=== PATIENT | male | born 1945 | race African-American/Black ===

== ENCOUNTER 2018-08-25 19:22 | Inpatient (IN) | payer MEDICARE, OTHER ==
[~2018-08-25] VITALS: Ht 182.9 cm; Wt 87.3 kg
[2018-08-25 08:30] VITALS: BP 121/76
[~2018-08-25 19:22] MED LIST: ANUSOL-HC25 MG RECTAL; CYCLOBENZAPRINE10 MG ORAL; DIOVAN HCT 1601 EAC1 PO; FIORICET1 EA ORAL; HARVONI 90-4001 EACH PO; IBUPROFEN600 MG ORAL; NORVIR100 MG PO; REYATAZ150 MG PO; SINEMET 25/1001 EA ORAL; TRUVADA1 TAB PO; UNKNOWN HTN MED; ZANTAC150 MG ORAL
--- NOTE | 2018-08-25 20:30 | NUR ---
NURSE NOTES: patient is direct admit from [facility], brought in by ambulance service accompanied by 2 EMT via rhailey. Family members present at the scene. Patient is admitted here for TIA. Alert, verbally responsive, able to make needs known. denies any pain at this time. Respiration even, no SOB no respiratory distress is noted with room air. IV site to left forearm 20g is intact. bed is in lowest position, call light within reach. will continue to monitor
--- NOTE | 2018-08-25 20:45 | NUR ---
NURSE NOTES: Tele monitoring applied to patient, condom path applied. Admission orders verified with Dr. Lujan. patient is NPO at this time untill seen and evaluated by ST. admission instruction, smoking cessation provided to patient and his family members. Will continue to monitor.
[2018-08-25] MEDS ORDERED: Acetaminophen 650 MG SUPP RECTAL PRN (21:45)
[2018-08-25] MEDS ORDERED: NORCO 5-325 TA1 EACH ORAL (22:01)
[2018-08-25] MEDS ORDERED: ALBUTEROL SULF8.5 GM INH (22:01)
[2018-08-25] MEDS ORDERED: VITAMIN D250000 UNI1 ORAL (22:01)
[2018-08-25] MEDS ORDERED: ASPIR 8181 MG ORAL (22:01)
[2018-08-25] MEDS ORDERED: ATORVASTATIN CA10 MG ORAL (22:01)
[2018-08-25] MEDS ORDERED: LISINOPRIL-HCT1 EACH ORAL (22:01)
[2018-08-25] MEDS ORDERED: MECLIZINE HCL25 M1 ORAL (22:01)
[2018-08-25] MEDS ORDERED: METOPROLOL TAR100 M1 ORAL (22:01)
[2018-08-25] MEDS ORDERED: LEFLUNOMIDE20 MG PO (22:01)
[2018-08-25] MEDS ORDERED: GENVOYA TABLET1 EACH PO (22:02)
[2018-08-25] MEDS ORDERED: Vitamin D 50,000 units cap ORAL SCH (22:15)
[2018-08-25] MEDS ORDERED: Meclizine 25mg tab ORAL PRN (22:15)
[2018-08-25] MEDS ORDERED: Albuterol 90mcg Inhaler 8gm INH PRN (22:15)
[2018-08-25] MEDS ORDERED: Norco 5mg/325mg tab ORAL PRN (22:15)
[2018-08-25] MEDS: D5 1/2NS 1,000 ML IV SCH (22:45)
[2018-08-26] VITALS (7 sets, daily range): BP systolic 106–118; BP diastolic 64–85
[2018-08-26 06:05] LABS: HEMATOCRIT 34.4 % (42.0-52.0); HEMOGLOBIN 11.4 G/DL (14.2-18.0); MEAN CORPUSCULAR VOLUME 96 FL (80-99); PLATELET COUNT 80 K/UL (150-450); RED BLOOD COUNT 3.59 M/UL (4.70-6.10); RED CELL DISTRIBUTION WIDTH 11.5 % (11.6-14.8); WHITE BLOOD COUNT 4.3 K/UL (4.8-10.8)
[2018-08-26 06:19] LABS: ANION GAP 8 mmol/L (5-15); BLOOD UREA NITROGEN 15 mg/dL (7-18); CALCIUM 8.7 MG/DL (8.5-10.1); CARBON DIOXIDE 25 MMOL/L (21-32); CHLORIDE 104 MMOL/L (98-107); CREATININE 1.3 MG/DL (0.55-1.30); PHOSPHORUS 3.2 MG/DL (2.5-4.9); POTASSIUM 3.5 MMOL/L (3.5-5.1); SODIUM 137 MMOL/L (136-145)
--- NOTE | 2018-08-26 07:03 | NUR ---
NURSE NOTES: Called Dr Lujan and left message in re: abnormal lab results (mg 1.6) . Awaiting for call back at this time.
--- NOTE | 2018-08-26 07:31 | NUR ---
HAND-OFF: Report given to Shola Freedman RN .
--- NOTE | 2018-08-26 08:15 | NUR ---
NURSE NOTES: received pt in the bed, awake, alert, oriented, vital signs stable, no co pain, no SOB, skin warm and dry to touch, intact, NPO, abdomen soft, IV on left forearm patten, bed in low position, call light within reach.
[2018-08-26] MEDS ORDERED: Lisinopril 10mg tab ORAL SCH (09:00)
[2018-08-26] MEDS ORDERED: Aspirin EC 81mg tab ORAL SCH (09:00)
[2018-08-26] MEDS ORDERED: hydroCHLOROthiazide 12.5mg TAB ORAL SCH (09:00)
[2018-08-26] MEDS ORDERED: Heparin 5000 units/ml inj SUBQ SCH (09:00)
--- NOTE | 2018-08-26 09:53 | NUR ---
REHAB MED PT NOTE CONSULT ISABELLA MILESTED, PATIENT WILL BENEFIT FROM SKILLED PT DURING STAY FOR RETURN TO [facility]. RECOMMEND HOME AT [place] WITH PT. PLAN OF CARE INITIATED. KAYLEY ENAMORADO PT DPT Addendum: 08/26/18 at 0953 by KAYLEY ENAMORADO PT Amended: Links added.
[2018-08-26] MEDS: Levodopa/Carbidopa 25/100 tab ORAL SCH ×3 (10:49→17:35)
--- NOTE | 2018-08-26 11:18 | NUR ---
NURSE NOTES: PT eval done, pt was up on chair, swallow eval done, passed.
--- NOTE | 2018-08-26 11:29 | Consultation ---
History of Present Illness General Date patient seen: Aug 26, 2018 Present Illness HPI 72 year old male with hx of HIV (CD4 count around 300), early Parkinson disease , HTN, CVA, TIA's in the past with left arm weakness. Pt has had diarrhea for a few days. Yesterday he went to his adventist where he passed out. He doesn't remember the events immediately prior to the event. He was taken to [facility] , where a CT scan was done. which showed. Allergies: Coded Allergies: No Known Allergies (Verified , 07/07/11) Medication History Scheduled Albuterol Sulfate* (Albuterol Sulfate Mdi*), 2 PUFF INH Q6H, (Reported) Aspirin* (Aspir 81*), 81 MG ORAL DAILY, (Reported) Atorvastatin Calcium* (Lipitor*), 10 MG ORAL BEDTIME, (Reported) Elviteg/Sara/Emtric/Tenofo Ala (Genvoya Tablet), 1 EACH PO DAILY, (Reported) Ergocalciferol (Vitamin D2)* (Vitamin D*), 50,000 UNIT ORAL ONCE A WEEK, ( Reported) Leflunomide (Leflunomide), 20 MG PO DAILY, (Reported) Levodopa/Carbidopa (Carbidopa-Levodopa 25-100 Tab), 1 TAB ORAL THREE TIMES A DAY , (Reported) Lisinopril/Hydrochlorothiazide 10-12.5 Mg Tab (Lisinopril-Hctz 10-12.5 Mg Tab), 1 TAB ORAL DAILY, (Reported) Metoprolol Tartrate* (Metoprolol Tartrate*), 100 MG ORAL DAILY, (Reported) Scheduled PRN Hydrocodone Bit/Acetaminophen 5-325* ([place] 5-325*), 1 TAB ORAL Q6H PRN for For Pain, (Reported) Meclizine Hcl (Meclizine Hcl), 25 MG ORAL DAILY PRN for for dizziness, (Reported ) Patient History Healthcare decision maker William Reina Resuscitation status Do Not Resuscitate Advanced Directive on File No Past Medical/Surgical History Past Medical/Surgical History: (1) HIV (human immunodeficiency virus infection) (2) 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 (3) Hepatitis C (4) HTN (hypertension) (5) Thrombocytopenia (6) Parkinsonian syndrome Review of Systems All Other Systems: negative except mentioned in HPI Physical Exam General Appearance: WD/WN, alert, lethargic Lines, tubes and drains: peripheral, PICC HEENT: normocephalic, atraumatic, anicteric Neck: non-tender, normal alignment, supple Respiratory/Chest: chest wall non-tender, lungs clear, normal breath sounds Breasts: no masses Cardiovascular/Chest: normal peripheral pulses, normal rate Abdomen: normal bowel sounds, non tender Genitourinary/Rectal: normal genital exam, normal rectal exam, normal prostate exam Extremities: non-tender Skin Exam: warm/dry Neurologic: solar manager II-XII grossly normal Last 24 Hour Vital Signs Date Time Temp Pulse Resp B/P (MAP) Pulse Ox O2 Delivery O2 Flow Rate FiO2 08/26/18 10:48 118/74 08/26/18 09:00 Room Air 08/26/18 08:00 97.9 73 20 118/74 (89) 96 08/26/18 04:00 99.1 79 20 111/71 (84) 94 08/26/18 03:20 75 08/26/18 01:05 99.5 08/26/18 00:00 100.5 86 20 106/64 (78) 94 08/26/18 00:00 88 08/25/18 22:09 Room Air Intake and Output 08/25/18 08/26/18 19:00 07:00 Intake Total 618.75 ml Output Total 551 ml Balance 67.75 ml Intake IV Total 618.75 ml Output Urine Total 550 ml Stool Total 1 ml Laboratory Tests Test 08/26/18 03:40 White Blood Count 4.3 K/UL (4.8-10.8) L Red Blood Count 3.59 M/UL (4.70-6.10) L Hemoglobin 11.4 G/DL (14.2-18.0) L Hematocrit 34.4 % (42.0-52.0) L Mean Corpuscular Volume 96 FL (80-99) Mean Corpuscular Hemoglobin 31.6 PG (27.0-31.0) H Mean Corpuscular Hemoglobin Concent 33.0 G/DL (32.0-36.0) Red Cell Distribution Width 11.5 % (11.6-14.8) L Platelet Count 80 K/UL (150-450) L Mean Platelet Volume 7.6 FL (6.5-10.1) Neutrophils (%) (Auto) % (45.0-75.0) Lymphocytes (%) (Auto) % (20.0-45.0) Monocytes (%) (Auto) % (1.0-10.0) Eosinophils (%) (Auto) % (0.0-3.0) Basophils (%) (Auto) % (0.0-2.0) Differential Total Cells Counted 100 Neutrophils % (Manual) 83 % (45-75) H Lymphocytes % (Manual) 8 % (20-45) L Monocytes % (Manual) 7 % (1-10) Eosinophils % (Manual) 2 % (0-3) Basophils % (Manual) 0 % (0-2) Band Neutrophils 0 % (0-8) Platelet Estimate Decreased L Platelet Morphology Normal Hypochromasia 1+ Sodium Level 137 MMOL/L (136-145) Potassium Level 3.5 MMOL/L (3.5-5.1) Chloride Level 104 MMOL/L (98-107) Carbon Dioxide Level 25 MMOL/L (21-32) Anion Gap 8 mmol/L (5-15) Blood Urea Nitrogen 15 mg/dL (7-18) Creatinine 1.3 MG/DL (0.55-1.30) Estimat Glomerular Filtration Rate > 60 mL/min (>60) Glucose Level 103 MG/DL (74-106) Calcium Level 8.7 MG/DL (8.5-10.1) Phosphorus Level 3.2 MG/DL (2.5-4.9) Magnesium Level 1.6 MG/DL (1.8-2.4) L Troponin I 0.012 ng/mL (0.000-0.056) Microbiology Date/Time Source Procedure Growth Status 08/26/18 04:57 Stool Clostridium difficile Toxin Assay - Final Complete Height (Feet): 6 Height (Inches): 0.00 Weight (Pounds): 188 Medications Current Medications Medications (Trade) Dose Ordered Sig/Pj Route PRN Reason Start Time Stop Time Status Last Admin Dose Admin Acetaminophen (Tylenol) 650 mg Q4H PRN RECTAL Mild Pain/Temp > 100.5 08/25/18 21:45 09/24/18 21:44 08/26/18 00:35 Acetaminophen/ Hydrocodone Bitart ([place] 5/325) 1 tab Q6H PRN ORAL For Pain 1/20/19 22:15 09/01/18 22:14 Albuterol Sulfate (Proventil MDI) 2 puff Q6H PRN INH Shortness of Breath 08/25/18 22:15 09/24/18 22:14 Aspirin (Ecotrin) 81 mg DAILY ORAL 08/26/18 09:00 09/25/18 08:59 08/26/18 10:49 Atorvastatin Calcium (Lipitor) 10 mg BEDTIME ORAL 08/25/18 22:15 09/24/18 22:14 Carbidopa/Levodopa (Sinemet 25/100) 1 tab THREE TIMES A DAY ORAL 08/26/18 09:00 09/25/18 08:59 08/26/18 10:49 Dextrose/Sodium Chloride 1,000 ml @ 75 mls/hr [id number] IV 08/25/18 21:45 09/24/18 21:44 08/25/18 22:45 Ergocalciferol (Drisdol) 50,000 intlu ONCE A WEEK ORAL 08/27/18 09:00 09/26/18 08:59 Hydrochlorothiazide (Hydrodiuril) 12.5 mg DAILY ORAL 08/26/18 09:00 09/25/18 08:59 08/26/18 10:49 Lisinopril (Zestril) 10 mg DAILY ORAL 08/26/18 09:00 09/25/18 08:59 08/26/18 10:48 Meclizine HCl (Antivert) 25 mg Q6H PRN ORAL for dizziness 08/25/18 22:15 09/24/18 22:14 Metoprolol Tartrate (Lopressor) 100 mg DAILY ORAL 08/27/18 09:00 09/26/18 08:59 Non-Formulary Medication (Non-Formulary Med) 1 ea DAILY ORAL 08/26/18 09:00 09/25/18 08:59 UNV Non-Formulary Medication (Non-Formulary Med) 1 ea DAILY ORAL 08/26/18 09:00 09/25/18 08:59 UNV Assessment/Plan Problem List: (1) Acute encephalopathy ICD Codes: G93.40 - Encephalopathy, unspecified SNOMED: 59734671, 485359929 (2) TIA (transient ischemic attack) ICD Codes: G45.9 - Transient cerebral ischemic attack, unspecified SNOMED: 906674610 (3) HIV (human immunodeficiency virus infection) ICD Codes: Z21 - Human immunodeficiency virus (HIV) infection SNOMED: 37632911 (4) Parkinsonian syndrome ICD Codes: G20 - Parkinson's disease SNOMED: 61698718 (5) Cirrhosis ICD Codes: K74.60 - Hepatic cirrhosis SNOMED: 06731012 (6) 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 Lane Braden MD Aug 26, 2018 11:29
--- NOTE | 2018-08-26 11:37 | Consultation ---
Consult Note Consult Note NEUROLOGY CONSULTATION: Full note dictated #[id number] 72 y/o, RH, BM with PH of HIV disease since the 1980s, HTN, a stroke in 2012 with left paresis and left hemisensory deficit, PD for the last few years responsive to Sinemet. For the last 2 days he has had diarrhoea. On 08/25/18 he was at his [employer] sitting on his desk and was found unresponsive. He says he was lightheaded prior to that. He was taken to [facility] and then transferred to [facility]. He did have a brain CT at [place] which revealed mild atrophy and DWM changes but no acute path. ON EXAM: Mild dysarthria. Left hemiparesis. Left hemisensory deficit. Globally diminished DTRs Parkinsonian tremor. IMPRESSION: Possible syncopal episode, due to dehydration, due to diarrhoea. 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 REC: Hydrate well Continue BP control Continue ASA 81 and statin. Continue Sinemet 25/100 q 7 AM, 12 Noon, 5 PM Observe Tj Hayes M.D., M.S.P.H. Tj Hayes MD Aug 26, 2018 11:37
[2018-08-26] MEDS: D5 1/2NS 1,000 ML IV SCH (11:53)
--- NOTE | 2018-08-26 11:54 | Consultation ---
History of Present Illness General Date patient seen: Aug 26, 2018 Present Illness HPI 72 y/o M with hx of HIV (CD4 count around 600s, Non detectable; dx ) on Genvoya, Hep C s/p Kisha with sustained virologic response (~ 3 yrs ago), early Parkinson disease, HTN, CVA 2012 w/ residual left arm weakness is transferred from [place] to [place] on 08/26 for continuation of care. Patient refers having diarrhea for the last few days and had syncopal episode yesterday at his anglican. CT head done at [place] showed mild atrophy but no acute changes. Diarrhea started 2 days ago and vomitign yesterday. No sick contacts. No recent abx. MIld diffuse abd pain. Tm 100.2 Allergies: Coded Allergies: No Known Allergies (Verified , 07/07/11) Medication History Scheduled Albuterol Sulfate* (Albuterol Sulfate Mdi*), 2 PUFF INH Q6H, (Reported) Aspirin* (Aspir 81*), 81 MG ORAL DAILY, (Reported) Atorvastatin Calcium* (Lipitor*), 10 MG ORAL BEDTIME, (Reported) Elviteg/Sara/Emtric/Tenofo Ala (Genvoya Tablet), 1 EACH PO DAILY, (Reported) Ergocalciferol (Vitamin D2)* (Vitamin D*), 50,000 UNIT ORAL ONCE A WEEK, ( Reported) Leflunomide (Leflunomide), 20 MG PO DAILY, (Reported) Levodopa/Carbidopa (Carbidopa-Levodopa 25-100 Tab), 1 TAB ORAL THREE TIMES A DAY , (Reported) Lisinopril/Hydrochlorothiazide 10-12.5 Mg Tab (Lisinopril-Hctz 10-12.5 Mg Tab), 1 TAB ORAL DAILY, (Reported) Metoprolol Tartrate* (Metoprolol Tartrate*), 100 MG ORAL DAILY, (Reported) Scheduled PRN Hydrocodone Bit/Acetaminophen 5-325* ([place] 5-325*), 1 TAB ORAL Q6H PRN for For Pain, (Reported) Meclizine Hcl (Meclizine Hcl), 25 MG ORAL DAILY PRN for for dizziness, (Reported ) Patient History Healthcare decision maker William Reina Resuscitation status Do Not Resuscitate Advanced Directive on File No Patient History Narrative Pmhx: as above Shx: reviewed Fhx non contributory Review of Systems All Other Systems: negative except mentioned in HPI Physical Exam Physical Exam Narrative General Appearance: WD/WN, alert, lethargic Lines, tubes and drains: peripheral, PICC HEENT: normocephalic, atraumatic, anicteric Neck: non-tender, normal alignment, supple Respiratory/Chest: chest wall non-tender, lungs clear, normal breath sounds Cardiovascular/Chest: normal peripheral pulses, normal rate Abdomen: normal bowel sounds, non tender Extremities: non-tender Skin Exam: warm/dry Last 24 Hour Vital Signs Date Time Temp Pulse Resp B/P (MAP) Pulse Ox O2 Delivery O2 Flow Rate FiO2 08/26/18 10:48 118/74 08/26/18 09:00 Room Air 08/26/18 08:00 97.9 73 20 118/74 (89) 96 08/26/18 04:00 99.1 79 20 111/71 (84) 94 08/26/18 03:20 75 08/26/18 01:05 99.5 08/26/18 00:00 100.5 86 20 106/64 (78) 94 08/26/18 00:00 88 08/25/18 22:09 Room Air Intake and Output 08/25/18 08/26/18 19:00 07:00 Intake Total 618.75 ml Output Total 551 ml Balance 67.75 ml Intake IV Total 618.75 ml Output Urine Total 550 ml Stool Total 1 ml Laboratory Tests Test 08/26/18 03:40 White Blood Count 4.3 K/UL (4.8-10.8) L Red Blood Count 3.59 M/UL (4.70-6.10) L Hemoglobin 11.4 G/DL (14.2-18.0) L Hematocrit 34.4 % (42.0-52.0) L Mean Corpuscular Volume 96 FL (80-99) Mean Corpuscular Hemoglobin 31.6 PG (27.0-31.0) H Mean Corpuscular Hemoglobin Concent 33.0 G/DL (32.0-36.0) Red Cell Distribution Width 11.5 % (11.6-14.8) L Platelet Count 80 K/UL (150-450) L Mean Platelet Volume 7.6 FL (6.5-10.1) Neutrophils (%) (Auto) % (45.0-75.0) Lymphocytes (%) (Auto) % (20.0-45.0) Monocytes (%) (Auto) % (1.0-10.0) Eosinophils (%) (Auto) % (0.0-3.0) Basophils (%) (Auto) % (0.0-2.0) Differential Total Cells Counted 100 Neutrophils % (Manual) 83 % (45-75) H Lymphocytes % (Manual) 8 % (20-45) L Monocytes % (Manual) 7 % (1-10) Eosinophils % (Manual) 2 % (0-3) Basophils % (Manual) 0 % (0-2) Band Neutrophils 0 % (0-8) Platelet Estimate Decreased L Platelet Morphology Normal Hypochromasia 1+ Sodium Level 137 MMOL/L (136-145) Potassium Level 3.5 MMOL/L (3.5-5.1) Chloride Level 104 MMOL/L (98-107) Carbon Dioxide Level 25 MMOL/L (21-32) Anion Gap 8 mmol/L (5-15) Blood Urea Nitrogen 15 mg/dL (7-18) Creatinine 1.3 MG/DL (0.55-1.30) Estimat Glomerular Filtration Rate > 60 mL/min (>60) Glucose Level 103 MG/DL (74-106) Calcium Level 8.7 MG/DL (8.5-10.1) Phosphorus Level 3.2 MG/DL (2.5-4.9) Magnesium Level 1.6 MG/DL (1.8-2.4) L Troponin I 0.012 ng/mL (0.000-0.056) Microbiology Date/Time Source Procedure Growth Status 08/26/18 04:57 Stool Clostridium difficile Toxin Assay - Final Complete Height (Feet): 6 Height (Inches): 0.00 Weight (Pounds): 188 Medications Current Medications Medications (Trade) Dose Ordered Sig/Pj Route PRN Reason Start Time Stop Time Status Last Admin Dose Admin Acetaminophen (Tylenol) 650 mg Q4H PRN RECTAL Mild Pain/Temp > 100.5 08/25/18 21:45 09/24/18 21:44 08/26/18 00:35 Acetaminophen/ Hydrocodone Bitart ([place] 5/325) 1 tab Q6H PRN ORAL For Pain 08/25/18 22:15 09/01/18 22:14 Albuterol Sulfate (Proventil MDI) 2 puff Q6H PRN INH Shortness of Breath 08/25/18 22:15 09/24/18 22:14 Aspirin (Ecotrin) 81 mg DAILY ORAL 08/26/18 09:00 09/25/18 08:59 08/26/18 10:49 Atorvastatin Calcium (Lipitor) 10 mg BEDTIME ORAL 08/25/18 22:15 09/24/18 22:14 Carbidopa/Levodopa (Sinemet 25/100) 1 tab THREE TIMES A DAY ORAL 08/26/18 09:00 09/25/18 08:59 08/26/18 10:49 Dextrose/Sodium Chloride 1,000 ml @ 75 mls/hr [id number] IV 08/25/18 21:45 09/24/18 21:44 08/25/18 22:45 Ergocalciferol (Drisdol) 50,000 intlu ONCE A WEEK ORAL 08/27/18 09:00 09/26/18 08:59 Hydrochlorothiazide (Hydrodiuril) 12.5 mg DAILY ORAL 08/26/18 09:00 09/25/18 08:59 08/26/18 10:49 Lisinopril (Zestril) 10 mg DAILY ORAL 08/26/18 09:00 09/25/18 08:59 08/26/18 10:48 Meclizine HCl (Antivert) 25 mg Q6H PRN ORAL for dizziness 08/25/18 22:15 09/24/18 22:14 Metoprolol Tartrate (Lopressor) 100 mg DAILY ORAL 08/27/18 09:00 09/26/18 08:59 Non-Formulary Medication (Non-Formulary Med) 1 ea DAILY ORAL 08/26/18 09:00 09/25/18 08:59 UNV Non-Formulary Medication (Non-Formulary Med) 1 ea DAILY ORAL 08/26/18 09:00 09/25/18 08:59 UNV Assessment/Plan Assessment/Plan Abx: None Assessment: Diarrhea- suspect 2ry to viral gastroenteritis Low grade fever Pancytopenia- ? due to viral GE vs 2ry to HIV Syncopal episode HIV (CD4 count around 600s, VL UD; dx 1980s) on Genvoya Hep C s/p Harvoni tx (3 yrs ago) w/ sustained virologic response early Parkinson disease HTN CVA 2012 w/ residual left arm weakness Plan: -Continue to monitor off abx -Check CXR, u/a w/ reflex, Bcx x2, cdiff, stool cx and influenz sc -f.u cx -Monitor CBC/CMP, temperatures -aspiration precautions -Will hold HAART while in hospital as Genvoya is not available in the hospital; resume if family can bring it from home. Thank you for this consultation. Will continue to follow along with you. Bobbi Wellington M.D. Aug 26, 2018 11:54
--- NOTE | 2018-08-26 11:56 | NUR ---
ST NOTE: BEDSIDE SWALLOW EVAL RECEIVED BEDSIDE SWALLOW EVAL ORDER CHART REVIEWED PRIOR THE EVALUATION. PT IS A 72-YEAR-OLD MALE WHO WAS TRANSFERRED FROM [facility] FOR POSSIBLE TIA. PER PT, HAVING A DIARRHEA FOR 2 DAYS AT HOME AND AT THE [facility]. ONCE WHEN HE WOKE UP, HE WAS IN THE HOSPITAL. PER CT HEAD WAS DONE AT [place], MILD ATROPHY AND WHITE MATTER MICROVASCULAR DISEASE; AND CT ABD, LUNG BASES ARE UNREMARKABLE. PT HAS H/O PARKINSON'S DZ, H/O CVA W/L SIDED WEAKNESS, HTN, AIDS, HIV INFECTION, COPD, ANEURYSM. VIDEOSWALLOW STUDY [place] COMPLET[place] [facility] [place]: MILD OROPHARYNGEAL DYSPHAGIA PENETRATION WITH THIN AND NECTAR THICK LIQUIDS DUE TO DELAYED SWALLOW AND DECREASED LARYNGEAL ELEVATION. MILD LARYNGOPHARYNGEAL REFLUX WITH RETROGRADE FLOW WAS NOTED. PLOF: PT LIVES AT HOME WITH FAMILY. PT IS DNR/DNI BUT DID INDICATE RE:ARTIFICIAL FEEDING IF NEEDED. CURRENT STATUS:PT SEEN AT BEDSIDE IN AM. ALERT, COOPERATIVE, FOLLOWS DIRECTIONS. PER PT, STILL HAS THE FEELING OF FOOD STUCK OR COMING BACK TO THE THE THROAT. AND PT ALSO REPORTED THAT FEELING HIS SPEECH IS WORSENED BUT SLOWLY COMING BACK. MILD DYSFLUENCY WAS NOTED GIVEN PO TRIALS: THIN(CUP-SELF), PUREE(TSP) AND CRACKER INITIAL IMPRESSION: PROBABLE PERSISTENT MILD OR WORSENED OROPHARYNGEAL AND ESOPHAGEAL DYSPHAGIA L-SIDED FACIAL WEAKNESS DECREASED LABIAL RANGE OF MOTION. SLOW MASTICATION TIME GOOD ORAL TRANSIT TIME AND OROPHARYNGEAL TRANSIT TIME FAIR TO GOOD LARYNGEAL ELEVATION, NO OVERT S/S OF ASPIRATION. HAS RISK FOR ASPIRATION DUE TO NEUROLOGICAL DIAGNOSIS. RECOMMENDATIONS: 1. SLOWLY INITIATE LOW SODIUM SOFT, EASY CHEW WITH THIN LIQUDS DIET 2. STRICT ASPIRATION/REFLUX PRECAUTIONS WITH 1TO1 ASSIST. 3. VIDEOSWALLOW STUDY IF NEEDED IP OR OP. 4. SPEECH/LANGUAGE/COGNITION/VOICE EVAL D/W PT, RN, TEN AND , DR. MCCOY. PER , APPROVED TO INITIATE THE SOFT DIET. POSTED ASPIRATION/REFLUX PRECAUTIONS SIGN.
[2018-08-26 12:23] LABS: APPEARANCE,URINE CLEAR; BILIRUBIN, URINE NEGATIVE (NEGATIVE); COLOR,URINE PALE YELLOW; GLUCOSE, URINE (UA) NEGATIVE (NEGATIVE); KETONES,URINE NEGATIVE (NEGATIVE); LEUKOCYTE ESTERASE ,URINE NEGATIVE (NEGATIVE); NITRITE,URINE NEGATIVE (NEGATIVE); PH,URINE 5 (4.5-8.0); PROTEIN,URINE 1+ (NEGATIVE); UROBILINOGEN,URINE NORMAL MG/DL (0.0-1.0)
--- NOTE | 2018-08-26 14:20 | Diagnostic Imaging Report ---
Indication: Cough Technique: XRAY Chest 1v Comparison: 03/15/2016 Findings: Heart size and mediastinal contours are within normal limits and stable compared to the prior exam allowing for differences in technique. Atherosclerotic calcifications again noted in a tortuous aorta. There is no focal consolidation, pneumothorax or pleural effusion. Osseous structures demonstrate no acute abnormality. Impression: No airspace consolidation, pleural effusion or pneumothorax.
--- NOTE | 2018-08-26 15:05 | History & Physical ---
History and Physical History & Physicial Dictated for Int Med-Dr Lujan no. [id number]. Alberto Phipps MD Aug 26, 2018 15:05
--- NOTE | 2018-08-26 15:06 | Diagnostic Imaging Report ---
Indication: Abdominal pain, previous steatosis Technique: Multiplanar grayscale and color Doppler imaging of the abdomen. Comparison: CT abdomen pelvis 07/18/2015 Findings: Exam is limited by overlying bowel gas and patient body habitus. Within these limitations: Imaged portions of the pancreatic head grossly unremarkable. Body and tail not well seen. Liver is normal in size. Hepatic contour appears smooth. Imaged hepatic veins appear patent. Portal vein patent with normal direction of flow. No focal hepatic mass lesion is appreciated sonographically. The gallbladder is not visualized and may be surgically absent. Patient noted to be status post cholecystectomy on prior CT. No biliary ductal dilatation. Common bile duct measures 5.4 mm in diameter. There kidneys are measured in size. They demonstrate normal echogenicity. No hydronephrosis or sonographically appreciable renal stone. Spleen unremarkable in appearance and normal in size. Imaged portions of the abdominal aorta normal in caliber. No ascites identified. IMPRESSION: Status post cholecystectomy. Otherwise, unremarkable abdominal sonogram.
--- NOTE | 2018-08-26 15:30 | Consultation ---
DATE OF CONSULTATION: 08/26/2018 NEUROLOGY CONSULTATION CONSULTING PHYSICIAN: Tj Hayes M.D. REQUESTING PHYSICIAN: Marshall Lujan M.D. HISTORY: Mr. William Reina is a 72-year-old, right-handed, black gentleman, who has a past history of HIV disease since the early , hypertension, a stroke in 2012 with left-sided weakness and left-sided sensory deficit, and Parkinson disease for the last few years - responsive to Sinemet. He was functioning relatively well until recently when he had significant diarrhea and was having loose watery stools. On 08/25/2018 he was at his [employer] sitting on his desk and was found unresponsive. He states that he was lightheaded prior to that but does not remember much more. He was apparently taken to [facility] where he was evaluated for the episode of loss of consciousness and a CT scan of the brain was done which revealed mild atrophy and deep white matter changes, but no acute pathology. He was then transferred to [facility] to be taken care of by Dr. Lujan. At this point in time, the patient feels relatively well. He feels that he is close to his normal self with regards to his strength and altered sensation on the left side. He feels that his mind is clear and he has not noticed any new neurological symptoms since the episode occurred yesterday. PAST MEDICAL HISTORY: HIV disease, hypertension, stroke in 2012 with left-sided dysfunction, Parkinson disease for the last few years. FAMILY HISTORY: Significant for high blood pressure in other family members. PERSONAL HISTORY: Home: He lives at home and his son and his son's family lives with him. 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 Habits: He used to smoke in the past but stopped smoking numerous years ago. He used to drink alcohol socially in the past but stopped doing that numerous years ago. He denies the use of any illicit drugs. PRESENT MEDICATIONS: Vitamin D 50,000 IU weekly, metoprolol, aspirin 81 mg daily, Sinemet 25/100 tid, lisinopril-hydrochlorothiazide, albuterol p.r.n., Lipitor, [place] p.r.n., meclizine p.r.n., Tylenol p.r.n. PHYSICAL EXAMINATION: GENERAL: He is a a well-developed, well-nourished, pleasant black gentleman, lying in bed, in no acute distress. VITAL SIGNS: Pulse 73/minute, blood pressure 118/74 mmHg, respirations 20/minute, and temperature 97.9 degrees Fahrenheit. HEAD: Normocephalic and atraumatic. NECK: No neck rigidity was observed. EENT: Examination benign. NEUROLOGIC EXAMINATION: MENTAL STATUS EXAMINATION: He was awake and alert. He was oriented to person, place, and time. He was able to recall 3/3 words immediately after 1 & 3 minutes. He was able to remember presidents Trump through Jeronimo Senior. His mathematical skills were good. His visuospatial function was preserved. SPEECH: He did have a mild dysarthria. LANGUAGE: He had an anomia for low-frequency words. CRANIAL NERVE EXAMINATION: II: The visual bennett were intact on confrontation testing. III, IV & : The external ocular movements were full and the pupils 3 mm in diameter, equal, round, regular, and reactive to light. V: He had normal facial sensations and the temporales, masseters, and pterygoids functioned normally. VII: He had a mild left seventh central facial paresis. VIII: He was able to hear well bilaterally and had no nystagmus. IX: The palate moved symmetrically on phonation. X: He had no hoarseness of voice. XI: The sternocleidomastoids and trapezii function normally. XII: The tongue was in the midline without any fasciculations or atrophy. MOTOR SYSTEM: The tone was normal in all four extremities. Examination of muscle mass revealed no focal wasting. Examination of power revealed G 5/5 power on the right side. On the left side, he had G 5/5 power except for G 4+/5 power in the left finger extensors and iliopsoas. There was a component of give-way weakness on the left side. SENSORY EXAMINATION: He was able to discern between pinprick and light touch, but complained of a subjective alteration over his entire left body. REFLEXES: Trace+ on the right and 1+ on the left at the biceps, triceps, brachioradialis, and knees, 0 at both ankles. The plantar responses were flexor bilaterally. COORDINATION: He performed well on yeqwlb-bn-[id number] and qmqj-wk-sraj testing. STANCE & GAIT: Were deferred. ABNORMAL MOVEMENTS: Tremor (4-5 hertz): G 1/4 in both upper extremities. Rigidity, bradykinesia, hypomimia, hypophonia: G 0/4. DIAGNOSTIC IMPRESSION: 1. Mr. William Reina is a 72-year-old, right-handed, black gentleman, with a past history of HIV disease, hypertension, cerebro-vascular disease with a stroke with left-sided dysfunction, and Parkinson disease, who for two days prior to admission, had significant diarrhea and on 08/25/2018 was sitting on his desk and passed out. At this point in time, he feels much better. 2. On neurological examination, at this time, he does have a mild dysarthria, a mild anomia for low-frequency words, a definite left hemiparesis involving the face and upper and lower extremities, left-sided hemisensory deficit of a subjective nature, globally diminished deep tendon reflexes that are slightly brisker on the left than on the right, and a parkinsonian tremor involving his hands. 3. The CT scan of the brain without contrast performed at [facility] by report revealed mild atrophy and deep white matter changes, but no acute pathology. 4. Laboratory data from [facility] revealed that he is anemic with a hemoglobin of 11.4 G and his chemistry panel is relatively benign except for low magnesium at 1.6. 5. The patient's history, neurological examination, imaging and laboratory data are most compatible with a possible syncopal episode due to dehydration due to diarrhea. 6. The left hemiparesis is due to old cerebrovascular disease and so is a hemisensory deficit. 7. He does have a parkinsonian tremor due to his underlying idiopathic Parkinson disease. RECOMMENDATIONS: 1. Agree with management thus far. 2. Would hydrate the patient well. 3. Would continue blood pressure control. 4. Would continue aspirin 81 mg daily for stroke prophylaxis. 5. Would continue Lipitor for stroke prophylaxis. 6. Would continue Sinemet 25/100, best to be taken at 7 a.m., 12 noon, 5 p.m. 7. The patient should be observed closely and depending on how he fares over the next day or so, further recommendations will be given. Thank you for entrusting me with the care of Mr. Reina. I shall follow him with you. Tj Hayes M.D., M.SP.H. DR: Hay JOB#: [id number] MTDD
--- NOTE | 2018-08-26 16:45 | History and Physical Report ---
DATE OF ADMISSION: 08/25/2018 CHIEF COMPLAINT: The patient is a 72-year-old male, presents with a chief complaint of syncopal episode. HISTORY OF PRESENT ILLNESS: The patient has a history of began on Friday August 24, 2018. The patient began to experience nausea, vomiting, and diarrhea. The patient then went to [facility] on Saturday August 25, 2018. The patient was found slumped over in the office. A 911 was called. The patient was initially evaluated at [facility] Emergency Room. The patient was transferred to [facility] for insurance purposes. The patient presents with chief complaint of syncopal episode. REVIEW OF SYSTEMS: CONSTITUTIONAL: The patient denies weight loss or weight gain. The patient denies fevers or chills. HEENT: The patient denies ear or throat pain. The patient denies headache. CARDIOVASCULAR: The patient denies palpitations or chest pain. CHEST: The patient denies wheeze or shortness of breath. ABDOMEN: The patient complains of nausea, vomiting, and diarrhea as above. The patient denies constipation. GENITOURINARY: The patient denies dysuria or increased frequency of urination. NEUROMUSCULAR: The patient complains of syncopal episode as above. The patient denies seizures or generalized weakness. PAST MEDICAL HISTORY: Significant for: 1. Hypertension. 2. History of cerebrovascular accident x2.. 3. Parkinson's disease. 4. HIV positive, diagnosed in 1981. HIV viral load is undetectable and T-cell count was greater than 600. 5. Hepatitis C, status post Harvoni therapy. PAST SURGICAL HISTORY: Significant for: 1. Kaposi's sarcoma resection. 2. Right groin lymph node resection. 3. Cholecystectomy. 4. Left hip total arthroplasty secondary to avascular necrosis. CURRENT MEDICATIONS: 1. Albuterol metered-dose inhaler two puffs p.o. q.i.d. p.r.n. 2. Aspirin 81 mg p.o. daily. 3. Atorvastatin 10 mg p.o. at bedtime. 4. Genvoya one tablet p.o. daily. 5. Vitamin D 50,000 units p.o. every week. 6. [place] 5/325 mg one tablet p.o. q.6 h. p.r.n. 7. Leflunomide 20 mg p.o. daily. 8. Sinemet 25/100 one tablet p.o. three times daily. 9. Lisinopril/hydrochlorothiazide 10/12.5 one tablet p.o. daily. 10. Meclizine 25 mg p.o. daily. 11. Metoprolol 100 mg p.o. daily. ALLERGIES: No known drug allergies. SOCIAL HISTORY: The patient lives with his adult son and his [id number]-[id number]. The patient denies tobacco or alcohol use. PHYSICAL EXAMINATION: VITAL SIGNS: Temperature 99.1, respirations 20, pulse 79, and blood pressure 111/71. GENERAL: The patient is a well-developed, well-nourished male, in no apparent distress. HEENT: Eyes, pupils equal and responsive to light and accommodation. Extraocular movements are intact. NECK: Supple without lymphadenopathy. CHEST: Lungs are clear to auscultation bilaterally without wheezes or rales. CARDIOVASCULAR: Regular rhythm and rate. S1 and S2 are normal without murmurs, rubs, or gallops. ABDOMEN: Soft, nontender, and nondistended. Positive bowel sounds. No evidence of hepatosplenomegaly. Currently, no rebound or guarding noted. EXTREMITIES: Negative for clubbing, cyanosis, or edema. RECTAL: Not performed. GENITAL: Not performed. NEUROLOGIC: Cranial nerves II through XII are grossly intact without focal deficits. Motor strength is 5/5 bilaterally intact. Deep tendon reflexes are 2+, plantar. LABORATORY STUDIES: A CT of the brain failed to demonstrate acute hemorrhage or intracranial abnormalities. WBC 5.9, hemoglobin 13.0, hematocrit 38.2 platelets 96,000. Sodium 136, potassium 4.0, chloride 106, CO2 19, BUN 15, creatinine 1.15, and glucose 106. ASSESSMENT: This is a 72-year-old male. 1. Syncopal episode. 2. Nausea/vomiting/diarrhea. 3. Dehydration. 4. HIV. 5. Cerebrovascular disease. 6. Hepatitis C. 7. Parkinson's disease. TREATMENT: 1. Syncope/altered mental status. A Neurology consultation has been obtained with Dr. Tj Hayes. MRI of the brain is pending. We will follow recommendations of Neurology. Carotid duplex and Doppler's are pending. 2. Nausea/vomiting/diarrhea/dehydration. The patient is currently receiving intravenous fluids. 3. HIV. Continue Genvoya as above. 4. Cerebrovascular disease. 5. Parkinson's disease. Continue Sinemet as above. 6. Hepatitis C, status post Harvoni therapy. Alberto Phipps M.D. DR: TOSHA JOB#: [id number] CC:
--- NOTE | 2018-08-26 18:12 | NUR ---
NURSE NOTES: pt transferred to 4E as ordered, condition stable, report given to DARYL SHEN.
--- NOTE | 2018-08-26 18:13 | NUR ---
NURSE NOTES: Received report from AC Freedman. Pt in bed in room 420-1, resting, A/O x4, no complaints of pain, no apparent distress noted. Pt transferred with all belongings, call light within reach, bed in lowest position.
[2018-08-26] MEDS ORDERED: Acetaminophen 650 MG SUPP RECTAL PRN (18:20)
[2018-08-26] MEDS ORDERED: Albuterol 90mcg Inhaler 8gm INH PRN (18:20)
[2018-08-26] MEDS ORDERED: Meclizine 25mg tab ORAL PRN (18:21)
[2018-08-26] MEDS ORDERED: Norco 5mg/325mg tab ORAL PRN (18:21)
--- NOTE | 2018-08-26 19:25 | NUR ---
NURSE NOTES: Received a report from AC Quiorga. Pt is in stable condition. Sleeping comfortably. No respiratory distress noted. No c/o pain/discomfort. IV site is patent and intact. Bed in lowest position. Bed alarm is on. Call light within reach. Will continue to monitor.
--- NOTE | 2018-08-26 19:31 | NUR ---
HAND-OFF: Report given to AC Mccoy.
--- NOTE | 2018-08-26 20:27 | NUR ---
CASE MANAGEMENT: REVIEW 72/M BIBA FROM [facility] CC: SYNCOPE SI: TRANSIENT ISCHEMIC ATTACK . DEHYDRATION T 100.5 HR 81 RR 16 BP 121/76 SAT 94% ROOM AIR WBC 4.3 MAG 1.6 IS: TYLENOL RECTAL X1 ANTIVERT PO X1 MAG SULFATE IV X1 D5 1/2 NS IVF BOLUS X1 PATIENT ADMITTED TO MED/SURG UNIT 08/25/2018 DCP: PATIENT IS FROM HOME
--- NOTE | 2018-08-26 21:03 | Physician Query ---
--------- THIS DOCUMENT IS A PERMANENT PART OF THE MEDICAL RECORD --------- PLEASE COMPLETE THE DOCUMENT BEFORE SIGNING Deajerrica Oates Date: Hospital Fellow/CDS Name: Hospital Fellow / CDS Phone # Exercise your independent professional judgment when responding to query. Question asked do not imply a particular answer is desired/expected Clinical Documentation States: "Syncope" documented in in H&P "Patient refers having diarrhea for the last few days and had syncopal episode yesterday at his [employer]. Diarrhea- suspect 2ry to viral gastroenteritis" - documented in Dr. Wellington' s consultation note Please specify the cause of SYNCOPE: [] Autonomic Imbalance [] Autonomic Dysfunction [X] Orthostatic Hypotension [] Psychogenic [] Shock [] Dehydration [] Dialysis Disequilibrium Syndrome [] Heat [] Other: [] Unable to determine Condition Present on Admission: [X] Yes [] No [] Clinically Undeterminable Please also document in your Progress Notes and/or Discharge Summary and indicate if the condition was present on admission. SWETHA AMBROSIO M.D. DATE & TIME [facility]
--- NOTE | 2018-08-26 22:43 | Diagnostic Imaging Report ---
APPROVED REPORT CPT Code: 57979 Present Symptoms Comments: Pain BILATERAL: Imaging reveals a patent deep venous system bilaterally. There is no evidence of thrombus within the femoral, popliteal or tibial segments. The greater saphenous veins are also within normal limits. Doppler indicates normal spontaneous flow within these segments.
--- NOTE | 2018-08-26 22:43 | Diagnostic Imaging Report ---
APPROVED REPORT CPT Code: 79185 Vascular Symptoms Comments: AMS. CAROTID (BILATERAL) - Imaging reveals no significant plaque within the right and left extracranial carotid arteries. The Doppler spectral flow analysis is within normal limits throughout the extracranial carotid arteries bilaterally. VERTEBRAL- The vertebral arteries are within normal limits.
[2018-08-27] VITALS (8 sets, daily range): BP systolic 102–135; BP diastolic 62–85
--- NOTE | 2018-08-27 07:30 | NUR ---
NURSE NOTES: Received pt from AC MCKEON. Pt is alert and orient x4. No SOB or acute respiratory distress noted. pt has intact iv access LFA 20G SL. pt is eating breakfast. pt has condom cath in place is running well. all needs attended, bed is locked and is in the lowest position. call light within easy reach. will continue to monitor.
--- NOTE | 2018-08-27 07:52 | NUR ---
HAND-OFF: Report given to AC Venegas. AC Venegas will follow up with the 2 other meds: Muriel and Teo.
[2018-08-27 08:08] LABS: HEMOGLOBIN 12.1 G/DL (14.2-18.0); MEAN CORPUSCULAR VOLUME 95 FL (80-99); PLATELET COUNT 88 K/UL (150-450); RED BLOOD COUNT 3.88 M/UL (4.70-6.10); RED CELL DISTRIBUTION WIDTH 11.8 % (11.6-14.8); WHITE BLOOD COUNT 2.8 K/UL (4.8-10.8)
[2018-08-27 08:30] LABS: LACTATE DEHYDROGENASE 168 U/L (81-234)
[2018-08-27 08:32] LABS: ALANINE AMINOTRANSFERASE 24 U/L (12-78); ALBUMIN 3.7 G/DL (3.4-5.0); ALBUMIN/GLOBULIN RATIO 0.9 (1.0-2.7); ALKALINE PHOSPHATASE 70 U/L (46-116); ANION GAP 9 mmol/L (5-15); ASPARTATE AMINO TRANSFERASE 36 U/L (15-37); BLOOD UREA NITROGEN 11 mg/dL (7-18); CALCIUM 8.8 MG/DL (8.5-10.1); CARBON DIOXIDE 25 MMOL/L (21-32); CHLORIDE 103 MMOL/L (98-107); CREATININE 1.1 MG/DL (0.55-1.30); PHOSPHORUS 2.5 MG/DL (2.5-4.9); POTASSIUM 3.6 MMOL/L (3.5-5.1); SODIUM 137 MMOL/L (136-145)
[2018-08-27 08:40] LABS: % IRON SATURATION 23 % (15-50); IRON 54 ug/dL (50-175); TOTAL IRON BINDING CAPACITY 240 ug/dL (250-450)
[2018-08-27] MEDS: Aspirin EC 81mg tab ORAL SCH (08:48)
[2018-08-27] MEDS: hydroCHLOROthiazide 12.5mg TAB ORAL SCH (08:48)
[2018-08-27] MEDS: Lisinopril 10mg tab ORAL SCH (08:49)
[2018-08-27] MEDS: Levodopa/Carbidopa 25/100 tab ORAL SCH ×3 (08:49→17:14)
[2018-08-27] MEDS ORDERED: Vitamin D 50,000 units cap ORAL SCH ×2 (09:00)
--- NOTE | 2018-08-27 10:08 | NUR ---
MRI BRAIN COMPLETED
--- NOTE | 2018-08-27 10:30 | NUR ---
NURSE NOTES: VIT D wasn't ready from pharmacy, so administrated late.
--- NOTE | 2018-08-27 11:43 | NUR ---
DATA PROCESSORFULL FASHIONED GARMENT KNITTER SI: DREA Kennedy 97.1 HR 70 RR 20 B/P 126/80 RA 98% RETIC COUNT 2.9 IS: ASA PO LOPRESSOR PO MED/SURG STATUS
--- NOTE | 2018-08-27 12:10 | Infectious Diseases Prog Note ---
Assessment/Plan Assessment/Plan Abx: None Assessment: Diarrhea- suspect 2ry to viral gastroenteritis -Abd US: Status post cholecystectomy. Otherwise, unremarkable abdominal sonogram. -stool cx, Cdiff p -influenza sc neg Low grade fever, improving -CXR: No airspace consolidation, pleural effusion or pneumothorax. -u/a neg Pancytopenia- ? due to viral GE vs 2ry to HIV Syncopal episode HIV (CD4 count around 600s, VL UD; dx ) on Genvoya -08/26 CD4 274 (39%) Hep C s/p Harvoni tx (3 yrs ago) w/ sustained virologic response early Parkinson disease HTN CVA 2012 w/ residual left arm weakness Plan: -Continue to monitor off abx -f/u Bcx x2, cdiff, stool cx -f.u cx -Monitor CBC/CMP, temperatures -aspiration precautions -Will hold HAART while in hospital as Genvoya is not available in the hospital; resume if family can bring it from home. Thank you for this consultation. Will continue to follow along with you. Subjective Allergies: Coded Allergies: No Known Allergies (Verified , 07/07/11) Subjective afebrile >36hrs Objective Vital Signs Last 24 Hour Vital Signs Date Time Temp Pulse Resp B/P (MAP) Pulse Ox O2 Delivery O2 Flow Rate FiO2 08/27/18 08:49 70 116/80 08/27/18 08:49 116/80 08/27/18 08:00 97.1 70 20 116/80 (92) 96 08/27/18 05:20 98.2 70 19 111/76 (88) 97 08/27/18 04:00 98.2 70 19 111/76 (88) 97 08/27/18 00:00 97.9 77 19 111/78 (89) 96 08/26/18 21:00 Room Air 08/26/18 20:00 98.2 81 19 116/85 (95) 99 08/26/18 18:50 98.2 77 18 118/81 (93) 96 08/26/18 16:00 72 08/26/18 16:00 97.2 72 18 114/78 (90) 97 Height (Feet): 6 Height (Inches): 0.00 Weight (Pounds): 188 Objective General Appearance: WD/WN, alert, lethargic Lines, tubes and drains: peripheral, PICC HEENT: normocephalic, atraumatic, anicteric Neck: non-tender, normal alignment, supple Respiratory/Chest: chest wall non-tender, lungs clear, normal breath sounds Cardiovascular/Chest: normal peripheral pulses, normal rate Abdomen: normal bowel sounds, non tender Extremities: non-tender Skin Exam: warm/dry Microbiology Date/Time Source Procedure Growth Status 08/26/18 12:15 Nasopharynx Influenza Types A,B Antigen (SHAWANDA) - Final Complete 08/26/18 04:57 Stool Clostridium difficile Toxin Assay - Final Complete Laboratory Tests Test 08/26/18 14:10 08/27/18 07:36 Stool Occult Blood Negative (NEGATIVE) White Blood Count 2.8 K/UL (4.8-10.8) L Red Blood Count 3.88 M/UL (4.70-6.10) L Hemoglobin 12.1 G/DL (14.2-18.0) L Hematocrit 37.0 % (42.0-52.0) L Mean Corpuscular Volume 95 FL (80-99) Mean Corpuscular Hemoglobin 31.2 PG (27.0-31.0) H Mean Corpuscular Hemoglobin Concent 32.7 G/DL (32.0-36.0) Red Cell Distribution Width 11.8 % (11.6-14.8) Platelet Count 88 K/UL (150-450) L Mean Platelet Volume 8.0 FL (6.5-10.1) Neutrophils (%) (Auto) % (45.0-75.0) Lymphocytes (%) (Auto) % (20.0-45.0) Monocytes (%) (Auto) % (1.0-10.0) Eosinophils (%) (Auto) % (0.0-3.0) Basophils (%) (Auto) % (0.0-2.0) Differential Total Cells Counted 100 Neutrophils % (Manual) 62 % (45-75) Lymphocytes % (Manual) 23 % (20-45) Monocytes % (Manual) 8 % (1-10) Eosinophils % (Manual) 6 % (0-3) H Basophils % (Manual) 1 % (0-2) Band Neutrophils 0 % (0-8) Platelet Estimate Decreased L Platelet Morphology Normal Anisocytosis 1+ Erythrocyte Sedimentation Rate 36 MM/HR (0-20) H Reticulocyte Count 2.9 % (0.0-2.0) H Prothrombin Time 10.8 SEC (9.30-11.50) Prothromb Time International Ratio 1.0 (0.9-1.1) Activated Partial Thromboplast Time 27 SEC (23-33) Sodium Level 137 MMOL/L (136-145) Potassium Level 3.6 MMOL/L (3.5-5.1) Chloride Level 103 MMOL/L (98-107) Carbon Dioxide Level 25 MMOL/L (21-32) Anion Gap 9 mmol/L (5-15) Blood Urea Nitrogen 11 mg/dL (7-18) Creatinine 1.1 MG/DL (0.55-1.30) Estimat Glomerular Filtration Rate > 60 mL/min (>60) Glucose Level 89 MG/DL (74-106) Calcium Level 8.8 MG/DL (8.5-10.1) Phosphorus Level 2.5 MG/DL (2.5-4.9) Magnesium Level 2.1 MG/DL (1.8-2.4) Iron Level 54 ug/dL (50-175) Total Iron Binding Capacity 240 ug/dL (250-450) L Percent Iron Saturation 23 % (15-50) Unsaturated Iron Binding 186 ug/dL (112-346) Total Bilirubin 1.0 MG/DL (0.2-1.0) Aspartate Amino Transf (AST/SGOT) 36 U/L (15-37) Alanine Aminotransferase (ALT/SGPT) 24 U/L (12-78) Alkaline Phosphatase 70 U/L (46-116) Lactate Dehydrogenase 168 U/L (81-234) Troponin I 0.012 ng/mL (0.000-0.056) C-Reactive Protein, Quantitative 1.4 mg/dL (0.00-0.90) H Total Protein 7.8 G/DL (6.4-8.2) Albumin 3.7 G/DL (3.4-5.0) Globulin 4.1 g/dL Albumin/Globulin Ratio 0.9 (1.0-2.7) L Carcinoembryonic Antigen Pending Vitamin B12 Level 478 PG/ML (193-986) Folate 9.3 NG/ML (8.6-58.9) Current Medications Medications (Trade) Dose Ordered Sig/Pj Route PRN Reason Start Time Stop Time Status Last Admin Dose Admin Acetaminophen (Tylenol) 650 mg Q4H PRN RECTAL Mild Pain/Temp > 100.5 08/26/18 18:20 09/25/18 18:19 Acetaminophen/ Hydrocodone Bitart ([place] 5/325) 1 tab Q6H PRN ORAL For Pain 08/26/18 18:21 09/02/18 18:20 Albuterol Sulfate (Proventil MDI) 2 puff Q6H PRN INH Shortness of Breath 08/26/18 18:20 09/25/18 18:19 Aspirin (Ecotrin) 81 mg DAILY ORAL 08/27/18 09:00 09/25/18 08:59 08/27/18 08:48 Atorvastatin Calcium (Lipitor) 10 mg BEDTIME ORAL 08/26/18 21:00 09/24/18 22:14 08/26/18 20:04 Carbidopa/Levodopa (Sinemet 25/100) 1 tab THREE TIMES A DAY ORAL 08/27/18 09:00 09/25/18 08:59 08/27/18 08:49 Ergocalciferol (Drisdol) 50,000 intlu ONCE A WEEK ORAL 08/27/18 09:00 09/26/18 08:59 08/27/18 10:30 Hydrochlorothiazide (Hydrodiuril) 12.5 mg DAILY ORAL 08/27/18 09:00 09/25/18 08:59 08/27/18 08:48 Lisinopril (Zestril) 10 mg DAILY ORAL 08/27/18 09:00 09/25/18 08:59 08/27/18 08:49 Meclizine HCl (Antivert) 25 mg Q6H PRN ORAL for dizziness 08/26/18 18:21 09/25/18 18:20 Metoprolol Tartrate (Lopressor) 100 mg DAILY ORAL 08/27/18 09:00 09/26/18 08:59 08/27/18 08:49 Non-Formulary Medication (Non-Formulary Med) 1 ea DAILY ORAL 08/27/18 09:00 09/25/18 08:59 UNV Non-Formulary Medication (Non-Formulary Med) 1 ea DAILY ORAL 08/27/18 09:00 09/25/18 08:59 UNV Bobbi Wellington M.D. Aug 27, 2018 12:10
--- NOTE | 2018-08-27 13:51 | Pulmonology Progress Note ---
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 Subjective ROS Limited/Unobtainable: No Constitutional: Reports: no symptoms HEENT: Repors: no symptoms Allergies: Coded Allergies: No Known Allergies (Verified , 07/07/11) Objective Last 24 Hour Vital Signs Date Time Temp Pulse Resp B/P (MAP) Pulse Ox O2 Delivery O2 Flow Rate FiO2 08/27/18 12:00 98.3 69 20 102/69 (80) 98 08/27/18 08:49 70 116/80 08/27/18 08:49 116/80 08/27/18 08:00 97.1 70 20 116/80 (92) 96 08/27/18 05:20 98.2 70 19 111/76 (88) 97 08/27/18 04:00 98.2 70 19 111/76 (88) 97 08/27/18 00:00 97.9 77 19 111/78 (89) 96 08/26/18 21:00 Room Air 08/26/18 20:00 98.2 81 19 116/85 (95) 99 08/26/18 18:50 98.2 77 18 118/81 (93) 96 08/26/18 16:00 72 08/26/18 16:00 97.2 72 18 114/78 (90) 97 Intake and Output 08/26/18 08/27/18 19:00 07:00 Intake Total 600 ml Output Total 451 ml 625 ml Balance 149 ml -625 ml Intake Oral 300 ml IV Total 300 ml Output Urine Total 450 ml 625 ml Stool Total 1 ml # Bowel Movements 1 2 General Appearance: WD/WN HEENT: atraumatic Respiratory/Chest: chest wall non-tender, lungs clear Cardiovascular: normal peripheral pulses, normal rate Abdomen: normal bowel sounds, soft, non tender, no scars Extremities: no clubbing Skin: no rash Microbiology Date/Time Source Procedure Growth Status 08/26/18 12:15 Nasopharynx Influenza Types A,B Antigen (SHAWANDA) - Final Complete 08/26/18 04:57 Stool Clostridium difficile Toxin Assay - Final Complete Laboratory Tests 08/26/18 14:10: Stool Occult Blood Negative 08/27/18 07:36: White Blood Count 2.8L, Red Blood Count 3.88L, Hemoglobin 12.1L, Hematocrit 37.0L, Mean Corpuscular Volume 95, Mean Corpuscular Hemoglobin 31.2H, Mean Corpuscular Hemoglobin Concent 32.7, Red Cell Distribution Width 11.8, Platelet Count 88L, Mean Platelet Volume 8.0, Neutrophils (%) (Auto) , Lymphocytes (%) ( Auto) , Monocytes (%) (Auto) , Eosinophils (%) (Auto) , Basophils (%) (Auto) , Differential Total Cells Counted 100, Neutrophils % (Manual) 62, Lymphocytes % ( Manual) 23, Monocytes % (Manual) 8, Eosinophils % (Manual) 6H, Basophils % ( Manual) 1, Band Neutrophils 0, Platelet Estimate DecreasedL, Platelet Morphology Normal, Anisocytosis 1+, Erythrocyte Sedimentation Rate 36H, Reticulocyte Count 2.9H, Prothrombin Time 10.8, Prothromb Time International Ratio 1.0, Activated Partial Thromboplast Time 27, Sodium Level 137, Potassium Level 3.6, Chloride Level 103, Carbon Dioxide Level 25, Anion Gap 9, Blood Urea Nitrogen 11, Creatinine 1.1, Estimat Glomerular Filtration Rate > 60, Glucose Level 89, Calcium Level 8.8, Phosphorus Level 2.5, Magnesium Level 2.1, Iron Level 54, Total Iron Binding Capacity 240L, Percent Iron Saturation 23, Unsaturated Iron Binding 186, Total Bilirubin 1.0, Aspartate Amino Transf (AST/ SGOT) 36, Alanine Aminotransferase (ALT/SGPT) 24, Alkaline Phosphatase 70, Lactate Dehydrogenase 168, Troponin I 0.012, C-Reactive Protein, Quantitative 1.4H, Total Protein 7.8, Albumin 3.7, Globulin 4.1, Albumin/Globulin Ratio 0.9L , Carcinoembryonic Antigen [Pending], Vitamin B12 Level 478, Folate 9.3 Current Medications Medications (Trade) Dose Ordered Sig/Pj Route PRN Reason Start Time Stop Time Status Last Admin Dose Admin Acetaminophen (Tylenol) 650 mg Q4H PRN RECTAL Mild Pain/Temp > 100.5 08/26/18 18:20 09/25/18 18:19 Acetaminophen/ Hydrocodone Bitart ([place] 5/325) 1 tab Q6H PRN ORAL For Pain 08/26/18 18:21 09/02/18 18:20 Albuterol Sulfate (Proventil MDI) 2 puff Q6H PRN INH Shortness of Breath 08/26/18 18:20 09/25/18 18:19 Aspirin (Ecotrin) 81 mg DAILY ORAL 08/27/18 09:00 09/25/18 08:59 08/27/18 08:48 Atorvastatin Calcium (Lipitor) 10 mg BEDTIME ORAL 08/26/18 21:00 09/24/18 22:14 08/26/18 20:04 Carbidopa/Levodopa (Sinemet 25/100) 1 tab THREE TIMES A DAY ORAL 08/27/18 09:00 09/25/18 08:59 08/27/18 13:23 Ergocalciferol (Drisdol) 50,000 intlu ONCE A WEEK ORAL 08/27/18 09:00 09/26/18 08:59 08/27/18 10:30 Hydrochlorothiazide (Hydrodiuril) 12.5 mg DAILY ORAL 08/27/18 09:00 09/25/18 08:59 08/27/18 08:48 Lisinopril (Zestril) 10 mg DAILY ORAL 08/27/18 09:00 09/25/18 08:59 08/27/18 08:49 Meclizine HCl (Antivert) 25 mg Q6H PRN ORAL for dizziness 08/26/18 18:21 09/25/18 18:20 Metoprolol Tartrate (Lopressor) 100 mg DAILY ORAL 08/27/18 09:00 09/26/18 08:59 08/27/18 08:49 Non-Formulary Medication (Non-Formulary Med) 1 ea DAILY ORAL 08/27/18 09:00 09/25/18 08:59 UNV Non-Formulary Medication (Non-Formulary Med) 1 ea DAILY ORAL 08/27/18 09:00 09/25/18 08:[address] Braden MD Aug 27, 2018 13:51
--- NOTE | 2018-08-27 15:20 | Neurology Progress Note ---
Interim History Interim History Interim History Mr. Reina feels better. He has had no dizziness, lightheadedness, or change in level of consciousness. The mind is clear. The strength is at baseline - still weak on the left. He has noticed no new neurologic symptoms. Review of Systems Neuro Review of Systems Benign. Objective Physical Exam Last Vital Signs Date Time Temp Pulse Resp B/P (MAP) Pulse Ox O2 Delivery O2 Flow Rate FiO2 08/27/18 12:00 98.3 69 20 102/69 (80) 98 08/26/18 21:00 Room Air Laboratory Tests Test 08/27/18 07:36 White Blood Count 2.8 K/UL (4.8-10.8) L Red Blood Count 3.88 M/UL (4.70-6.10) L Hemoglobin 12.1 G/DL (14.2-18.0) L Hematocrit 37.0 % (42.0-52.0) L Mean Corpuscular Volume 95 FL (80-99) Mean Corpuscular Hemoglobin 31.2 PG (27.0-31.0) H Mean Corpuscular Hemoglobin Concent 32.7 G/DL (32.0-36.0) Red Cell Distribution Width 11.8 % (11.6-14.8) Platelet Count 88 K/UL (150-450) L Mean Platelet Volume 8.0 FL (6.5-10.1) Neutrophils (%) (Auto) % (45.0-75.0) Lymphocytes (%) (Auto) % (20.0-45.0) Monocytes (%) (Auto) % (1.0-10.0) Eosinophils (%) (Auto) % (0.0-3.0) Basophils (%) (Auto) % (0.0-2.0) Differential Total Cells Counted 100 Neutrophils % (Manual) 62 % (45-75) Lymphocytes % (Manual) 23 % (20-45) Monocytes % (Manual) 8 % (1-10) Eosinophils % (Manual) 6 % (0-3) H Basophils % (Manual) 1 % (0-2) Band Neutrophils 0 % (0-8) Platelet Estimate Decreased L Platelet Morphology Normal Anisocytosis 1+ Erythrocyte Sedimentation Rate 36 MM/HR (0-20) H Reticulocyte Count 2.9 % (0.0-2.0) H Prothrombin Time 10.8 SEC (9.30-11.50) Prothromb Time International Ratio 1.0 (0.9-1.1) Activated Partial Thromboplast Time 27 SEC (23-33) Sodium Level 137 MMOL/L (136-145) Potassium Level 3.6 MMOL/L (3.5-5.1) Chloride Level 103 MMOL/L (98-107) Carbon Dioxide Level 25 MMOL/L (21-32) Anion Gap 9 mmol/L (5-15) Blood Urea Nitrogen 11 mg/dL (7-18) Creatinine 1.1 MG/DL (0.55-1.30) Estimat Glomerular Filtration Rate > 60 mL/min (>60) Glucose Level 89 MG/DL (74-106) Calcium Level 8.8 MG/DL (8.5-10.1) Phosphorus Level 2.5 MG/DL (2.5-4.9) Magnesium Level 2.1 MG/DL (1.8-2.4) Iron Level 54 ug/dL (50-175) Total Iron Binding Capacity 240 ug/dL (250-450) L Percent Iron Saturation 23 % (15-50) Unsaturated Iron Binding 186 ug/dL (112-346) Total Bilirubin 1.0 MG/DL (0.2-1.0) Aspartate Amino Transf (AST/SGOT) 36 U/L (15-37) Alanine Aminotransferase (ALT/SGPT) 24 U/L (12-78) Alkaline Phosphatase 70 U/L (46-116) Lactate Dehydrogenase 168 U/L (81-234) Troponin I 0.012 ng/mL (0.000-0.056) C-Reactive Protein, Quantitative 1.4 mg/dL (0.00-0.90) H Total Protein 7.8 G/DL (6.4-8.2) Albumin 3.7 G/DL (3.4-5.0) Globulin 4.1 g/dL Albumin/Globulin Ratio 0.9 (1.0-2.7) L Carcinoembryonic Antigen Pending Vitamin B12 Level 478 PG/ML (193-986) Folate 9.3 NG/ML (8.6-58.9) Neurologic Exam Objective PHYSICAL EXAMINATION: GENERAL: He is a a well-developed, well-nourished, pleasant black gentleman, lying in bed, in no acute distress. HEAD: Normocephalic and atraumatic. NECK: No neck rigidity was observed. EENT: Examination benign. NEUROLOGIC EXAMINATION: MENTAL STATUS EXAMINATION: He was awake and alert. He was oriented to person, place, and time. He was able to recall 3/3 words immediately after 1 & 3 minutes. He was able to remember presidents Trump through Jeronimo Senior. His mathematical skills were good. His visuospatial function was preserved. SPEECH: He did have a mild dysarthria. LANGUAGE: He had an anomia for low-frequency words. CRANIAL NERVE EXAMINATION: II: The visual bennett were intact on confrontation testing. III, IV & : The external ocular movements were full and the pupils 3 mm in diameter, equal, round, regular, and reactive to light. V: He had normal facial sensations and the temporales, masseters, and pterygoids functioned normally. VII: He had a mild left seventh central facial paresis. VIII: He was able to hear well bilaterally and had no nystagmus. IX: The palate moved symmetrically on phonation. X: He had no hoarseness of voice. XI: The sternocleidomastoids and trapezii function normally. XII: The tongue was in the midline without any fasciculations or atrophy. MOTOR SYSTEM: The tone was normal in all four extremities. Examination of muscle mass revealed no focal wasting. Examination of power revealed G 5/5 power on the right side. On the left side, he had G 5/5 power except for G 4+/5 power in the left finger extensors and iliopsoas. There was a component of give-way weakness on the left. SENSORY EXAMINATION: He was able to discern between pinprick and light touch, but complained of a subjective alteration over his entire left body. REFLEXES: Trace+ on the right and 1+ on the left at the biceps, triceps, brachioradialis, and knees, 0 at both ankles. The plantar responses were flexor bilaterally. COORDINATION: He performed well on [id number] and cgdi-il-gmis testing. STANCE & GAIT: Were deferred. ABNORMAL MOVEMENTS: Tremor (4-5 Hz): G Trace/4 in both upper extremities. Rigidity, bradykinesia, hypomimia, hypophonia: G 0/4. Impression/Recommendations Diagnostic Impression 1. Mr. William Reina is a 72-year-old, right-handed, black gentleman, with a past history of HIV disease, hypertension, cerebro-vascular disease with a stroke with left-sided dysfunction, and Parkinson disease, who for two days prior to admission, had significant diarrhea and on 08/25/2018 was sitting on his desk and passed out. 2. He feels better. He has had no dizziness, lightheadedness, or change in level of consciousness. The mind is clear. The strength is at baseline - still weak on the left. He has noticed no new neurologic symptoms. 3. On neurological examination, at this time, he does have a mild dysarthria, a mild anomia for low-frequency words, a definite left hemiparesis involving the face and upper and lower extremities, left-sided hemisensory deficit of a subjective nature, globally diminished deep tendon reflexes that are slightly brisker on the left than on the right, and a mild parkinsonian tremor involving his hands. 4. The CT scan of the brain without contrast performed at [facility] by report revealed mild atrophy and deep white matter changes, but no acute pathology. 5. Laboratory data from [facility] revealed that he is anemic with a hemoglobin of 11.4 G and his chemistry panel is relatively benign except for low magnesium at 1.6. 6. The patient's history, neurological examination, imaging and laboratory data are most compatible with a possible syncopal episode due to dehydration due to diarrhea. 7. The left hemiparesis is due to old cerebrovascular disease and so is a hemisensory deficit. 8. He does have a parkinsonian tremor due to his underlying idiopathic Parkinson disease. Recommendations 1. Continue present management. 2. Hydrate well. 3. Continue blood pressure control. 4. Continue aspirin 81 mg daily for stroke prophylaxis. 5. Continue Lipitor for stroke prophylaxis. 6. Continue Sinemet 25/100, best to be taken at 7 a.m., 12 noon, 5 p.m. 7. Observe closely. Tj Hayes M.D., M.SP.H. Tj Hayes MD Aug 27, 2018 15:20
--- NOTE | 2018-08-27 15:34 | NUR ---
NURSE NOTES: family didn't bring non formulary meds, asked pt and he stated family doesn't have his home ortega to bring the meds. and he stated no problem. called pharmacy and I spoke with pharmacist CATALINA, she is aware about every thing and she stated she will follow up with Dr rdz. will continue to monitor.
--- NOTE | 2018-08-27 15:38 | NUR ---
ST NOTE: SWALLOW/SPEECH/LANGUAGE/COGNITIONS/VOICE STATUS FOLLOWED UP PT'S CONDITIONS. PT SEEN AT BEDSIDE IN AM AND PM. ALERT, FEELING BETTER PER PT, NO SWALLOWING DIFFICULTY OR REFLUX WERE NOTED. DISCUSSED AND EDUCATED PT RE: ASPIRATION/REFLUX PRECAUTIONS. PT WAS ABLE TOLERATE THIN LIQUIDS WITHOUT OVERT S/S OF ASPIRATION. SPEECH/LANGUAGE/COGNITIONS/VOICE STATUS: MILD MUMBLING, MONOTONE WAS NOTED. HYPOPHONIA(SOFT SPEECH) AND REDUCED VOLUME WAS NOTED. PT PROBABLY WILL BENEFIT FROM [facility] VOICE TREATMENT(LSVT) PROGRAM TO ADDRESS HIS SPEECH/VOICE. DISCUSSED WITH PT RE: LSVT PROGRAM. D/W PT AND THE STAFF.
--- NOTE | 2018-08-27 15:53 | Diagnostic Imaging Report ---
Indication: Syncope, left-sided weakness, history of HIV Technique: sagittal T1 fast spin echo, axial T1 FLAIR, axial and sagittal T2 FLAIR PROPELLER, axial T2 FS PROPELLER, axial T2* GRE, axial diffusion weighted images. ADC and exponential ADC maps generated Comparison: 10/28/2014 Findings: No abnormal areas of restricted diffusion to suggest acute infarction. No acute hemorrhage or edema. No mass effect nor midline shift. There is age-related enlargement of the ventricles and extra axial CSF spaces. Periventricular and deep white matter high T2 signal is similar to the previous study. The vascular flow voids are preserved. Intracranial vessels are somewhat ectatic.. Visualized orbits and sinuses are unremarkable. Impression: Negative for acute intracranial bleed, mass effect, or infarct Age-related volume loss Periventricular deep white matter high T2 signal, unchanged from prior exam, most likely on the basis of chronic ischemic change, chronic demyelination also a possibility
--- NOTE | 2018-08-27 16:38 | Internal Med Progress Note ---
Subjective Date of Service: Aug 27, 2018 Physician Name Alberto Phipps Attending Physician Marshall Lujan MD Current Medications Medications (Trade) Dose Ordered Sig/Pj Route PRN Reason Start Time Stop Time Status Last Admin Dose Admin Acetaminophen (Tylenol) 650 mg Q4H PRN RECTAL Mild Pain/Temp > 100.5 08/26/18 18:20 09/25/18 18:19 Acetaminophen/ Hydrocodone Bitart ([place] 5/325) 1 tab Q6H PRN ORAL For Pain 08/26/18 18:21 09/02/18 18:20 Albuterol Sulfate (Proventil MDI) 2 puff Q6H PRN INH Shortness of Breath 08/26/18 18:20 09/25/18 18:19 Aspirin (Ecotrin) 81 mg DAILY ORAL 08/27/18 09:00 09/25/18 08:59 08/27/18 08:48 Atorvastatin Calcium (Lipitor) 10 mg BEDTIME ORAL 08/26/18 21:00 09/24/18 22:14 08/26/18 20:04 Carbidopa/Levodopa (Sinemet 25/100) 1 tab THREE TIMES A DAY ORAL 08/27/18 09:00 09/25/18 08:59 08/27/18 13:23 Ergocalciferol (Drisdol) 50,000 intlu ONCE A WEEK ORAL 08/27/18 09:00 09/26/18 08:59 08/27/18 10:30 Hydrochlorothiazide (Hydrodiuril) 12.5 mg DAILY ORAL 08/27/18 09:00 09/25/18 08:59 08/27/18 08:48 Lisinopril (Zestril) 10 mg DAILY ORAL 08/27/18 09:00 09/25/18 08:59 08/27/18 08:49 Meclizine HCl (Antivert) 25 mg Q6H PRN ORAL for dizziness 08/26/18 18:21 09/25/18 18:20 Metoprolol Tartrate (Lopressor) 100 mg DAILY ORAL 08/27/18 09:00 09/26/18 08:59 08/27/18 08:49 Non-Formulary Medication (Non-Formulary Med) 1 ea DAILY ORAL 08/27/18 09:00 09/25/18 08:59 UNV Allergies: Coded Allergies: No Known Allergies (Verified , 07/07/11) ROS Limited/Unobtainable: No Constitutional: Reports: no symptoms HEENT: Reports: no symptoms Cardiovascular: Reports: no symptoms Respiratory: Reports: no symptoms Gastrointestinal/Abdominal: Reports: no symptoms Genitourinary: Reports: no symptoms Neurologic/Psychiatric: Reports: no symptoms Subjective 72 YO M admitted with syncope. Cover for Int Hank-DR Lujan Objective Last Vital Signs Date Time Temp Pulse Resp B/P (MAP) Pulse Ox O2 Delivery O2 Flow Rate FiO2 08/27/18 16:00 98.6 64 18 109/77 (88) 96 08/26/18 21:00 Room Air Laboratory Tests Test 08/27/18 07:36 White Blood Count 2.8 K/UL (4.8-10.8) L Red Blood Count 3.88 M/UL (4.70-6.10) L Hemoglobin 12.1 G/DL (14.2-18.0) L Hematocrit 37.0 % (42.0-52.0) L Mean Corpuscular Volume 95 FL (80-99) Mean Corpuscular Hemoglobin 31.2 PG (27.0-31.0) H Mean Corpuscular Hemoglobin Concent 32.7 G/DL (32.0-36.0) Red Cell Distribution Width 11.8 % (11.6-14.8) Platelet Count 88 K/UL (150-450) L Mean Platelet Volume 8.0 FL (6.5-10.1) Neutrophils (%) (Auto) % (45.0-75.0) Lymphocytes (%) (Auto) % (20.0-45.0) Monocytes (%) (Auto) % (1.0-10.0) Eosinophils (%) (Auto) % (0.0-3.0) Basophils (%) (Auto) % (0.0-2.0) Differential Total Cells Counted 100 Neutrophils % (Manual) 62 % (45-75) Lymphocytes % (Manual) 23 % (20-45) Monocytes % (Manual) 8 % (1-10) Eosinophils % (Manual) 6 % (0-3) H Basophils % (Manual) 1 % (0-2) Band Neutrophils 0 % (0-8) Platelet Estimate Decreased L Platelet Morphology Normal Anisocytosis 1+ Erythrocyte Sedimentation Rate 36 MM/HR (0-20) H Reticulocyte Count 2.9 % (0.0-2.0) H Prothrombin Time 10.8 SEC (9.30-11.50) Prothromb Time International Ratio 1.0 (0.9-1.1) Activated Partial Thromboplast Time 27 SEC (23-33) Sodium Level 137 MMOL/L (136-145) Potassium Level 3.6 MMOL/L (3.5-5.1) Chloride Level 103 MMOL/L (98-107) Carbon Dioxide Level 25 MMOL/L (21-32) Anion Gap 9 mmol/L (5-15) Blood Urea Nitrogen 11 mg/dL (7-18) Creatinine 1.1 MG/DL (0.55-1.30) Estimat Glomerular Filtration Rate > 60 mL/min (>60) Glucose Level 89 MG/DL (74-106) Calcium Level 8.8 MG/DL (8.5-10.1) Phosphorus Level 2.5 MG/DL (2.5-4.9) Magnesium Level 2.1 MG/DL (1.8-2.4) Iron Level 54 ug/dL (50-175) Total Iron Binding Capacity 240 ug/dL (250-450) L Percent Iron Saturation 23 % (15-50) Unsaturated Iron Binding 186 ug/dL (112-346) Total Bilirubin 1.0 MG/DL (0.2-1.0) Aspartate Amino Transf (AST/SGOT) 36 U/L (15-37) Alanine Aminotransferase (ALT/SGPT) 24 U/L (12-78) Alkaline Phosphatase 70 U/L (46-116) Lactate Dehydrogenase 168 U/L (81-234) Troponin I 0.012 ng/mL (0.000-0.056) C-Reactive Protein, Quantitative 1.4 mg/dL (0.00-0.90) H Total Protein 7.8 G/DL (6.4-8.2) Albumin 3.7 G/DL (3.4-5.0) Globulin 4.1 g/dL Albumin/Globulin Ratio 0.9 (1.0-2.7) L Carcinoembryonic Antigen Pending Vitamin B12 Level 478 PG/ML (193-986) Folate 9.3 NG/ML (8.6-58.9) Microbiology Date/Time Source Procedure Growth Status 08/26/18 12:15 Nasopharynx Influenza Types A,B Antigen (SHAWANDA) - Final Complete 08/26/18 04:57 Stool Clostridium difficile Toxin Assay - Final Complete Intake and Output 08/26/18 08/27/18 19:00 07:00 Intake Total 600 ml Output Total 451 ml 625 ml Balance 149 ml -625 ml Intake Oral 300 ml IV Total 300 ml Output Urine Total 450 ml 625 ml Stool Total 1 ml # Bowel Movements 1 2 Objective PHYSICAL EXAMINATION: VITAL SIGNS: Temperature 99.1, respirations 20, pulse 79, and blood pressure 111/71. GENERAL: The patient is a well-developed, well-nourished male, in no apparent distress. HEENT: Eyes, pupils equal and responsive to light and accommodation. Extraocular movements are intact. NECK: Supple without lymphadenopathy. CHEST: Lungs are clear to auscultation bilaterally without wheezes or rales. CARDIOVASCULAR: Regular rhythm and rate. S1 and S2 are normal without murmurs, rubs, or gallops. ABDOMEN: Soft, nontender, and nondistended. Positive bowel sounds. No evidence of hepatosplenomegaly. Currently, no rebound or guarding noted. EXTREMITIES: Negative for clubbing, cyanosis, or edema. RECTAL: Not performed. GENITAL: Not performed. NEUROLOGIC: Cranial nerves II through XII are grossly intact without focal deficits. Motor strength is 5/5 bilaterally intact. Deep tendon reflexes are 2+ Assessment/Plan Assessment/Plan ASSESSMENT: This is a 72-year-old male. 1. Syncopal episode. 2. Nausea/vomiting/diarrhea. 3. Dehydration. 4. HIV. 5. Cerebrovascular disease. 6. Hepatitis C. 7. Parkinson's disease. TREATMENT: 1. Syncope/altered mental status. A Neurology consultation has been obtained with Dr. Tj Hayes. 08/27/18 MRI of the brain was reported as normal. 2. Nausea/vomiting/diarrhea/dehydration. The patient is currently receiving intravenous fluids. 3. HIV. Continue Genvoya as above. 4. Cerebrovascular disease. 5. Parkinson's disease. Continue Sinemet as above. 6. Hepatitis C, status post Harvoni therapy. Alberto Phipps MD Aug 27, 2018 16:38
--- NOTE | 2018-08-27 19:17 | NUR ---
NURSE NOTES: Received a report from AC Venegas. Pt is in stable condition. AAOX4. Able to make needs known. Family members at the bedside. No respiratory distress noted. On room air. No c/o pain/discomfort. IV site is patent and intact. Bed in lowest position. Bed alarm is on. Call light within reach. Will continue to monitor.
--- NOTE | 2018-08-27 19:18 | NUR ---
HAND-OFF: Report given to AC MCKEON.
--- NOTE | 2018-08-27 19:37 | NUR ---
CHARGE NURSE NOTE: Spoke with Dr. Wellington, notified her that pt needs Genovoya prescription (HIV meds). Our pharmacy does not have it. She will provide it tomorrow. Sarah jaeger charge nurse notified.
[2018-08-28 04:00] VITALS: BP 107/70
--- NOTE | 2018-08-28 07:16 | NUR ---
HAND-OFF: Report given to Raúl Crespo RN.
--- NOTE | 2018-08-28 07:57 | NUR ---
NURSE NOTES: Received the patient from AC Mccoy.Patient is in bed, sleeping.Patient is not in respiratory distress, in room air.Bed is in the lowest position, with side rails up, call light is within reach. Will continue to monitor patient.
[2018-08-28 08:00] VITALS: BP 108/72
[2018-08-28 08:13] LABS: HEMATOCRIT 35.7 % (42.0-52.0); MEAN CORPUSCULAR VOLUME 95 FL (80-99); PLATELET COUNT 99 K/UL (150-450); RED BLOOD COUNT 3.76 M/UL (4.70-6.10); RED CELL DISTRIBUTION WIDTH 11.5 % (11.6-14.8); WHITE BLOOD COUNT 2.9 K/UL (4.8-10.8)
[2018-08-28] MEDS: Lisinopril 10mg tab ORAL SCH (09:00)
[2018-08-28] MEDS: hydroCHLOROthiazide 12.5mg TAB ORAL SCH (09:00)
[2018-08-28 09:39] LABS: ANION GAP 11 mmol/L (5-15); BLOOD UREA NITROGEN 15 mg/dL (7-18); CALCIUM 8.7 MG/DL (8.5-10.1); CARBON DIOXIDE 23 MMOL/L (21-32); CHLORIDE 103 MMOL/L (98-107); CREATININE 1.1 MG/DL (0.55-1.30); POTASSIUM 3.6 MMOL/L (3.5-5.1); SODIUM 137 MMOL/L (136-145)
[2018-08-28] MEDS: Aspirin EC 81mg tab ORAL SCH (10:23)
[2018-08-28] MEDS: Levodopa/Carbidopa 25/100 tab ORAL SCH ×3 (10:23→18:00)
[2018-08-28 12:00] VITALS: BP 108/76
--- NOTE | 2018-08-28 12:52 | Pulmonology Progress Note ---
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 dc home Subjective ROS Limited/Unobtainable: No Constitutional: Reports: no symptoms HEENT: Repors: no symptoms Respiratory: Reports: no symptoms Allergies: Coded Allergies: No Known Allergies (Verified , 07/07/11) Objective Last 24 Hour Vital Signs Date Time Temp Pulse Resp B/P (MAP) Pulse Ox O2 Delivery O2 Flow Rate FiO2 08/28/18 12:00 98.0 63 19 108/76 (87) 95 08/28/18 09:00 58 108/72 08/28/18 09:00 108/72 08/28/18 08:00 97.3 58 16 108/72 (84) 95 08/28/18 04:00 98.0 58 16 107/70 (82) 95 08/27/18 23:58 97.6 67 20 135/62 (86) 98 08/27/18 20:00 97.1 58 17 113/78 (90) 96 08/27/18 16:00 98.6 64 18 109/77 (88) 96 Intake and Output 08/27/18 08/28/18 19:00 07:00 Intake Total 890 ml 360 ml Balance 890 ml 360 ml Intake Oral 890 ml 360 ml # Bowel Movements 1 1 General Appearance: WD/WN HEENT: normocephalic, anicteric Respiratory/Chest: chest wall non-tender, lungs clear Cardiovascular: normal peripheral pulses, normal rate Abdomen: normal bowel sounds, no organomegaly Extremities: no cyanosis Skin: no rash Microbiology Date/Time Source Procedure Growth Status 08/26/18 12:00 Blood Blood Culture - Preliminary NO GROWTH AFTER 24 HOURS Resulted 08/26/18 11:45 Blood Blood Culture - Preliminary NO GROWTH AFTER 24 HOURS Resulted 08/26/18 12:15 Nasopharynx Influenza Types A,B Antigen (SHAWANDA) - Final Complete 08/26/18 04:57 Stool Clostridium difficile Toxin Assay - Final Complete Laboratory Tests 08/28/18 06:44: White Blood Count 2.9L, Red Blood Count 3.76L, Hemoglobin 12.0L, Hematocrit 35.7L, Mean Corpuscular Volume 95, Mean Corpuscular Hemoglobin 31.9H, Mean Corpuscular Hemoglobin Concent 33.7, Red Cell Distribution Width 11.5L, Platelet Count 99L, Mean Platelet Volume 9.6, Neutrophils (%) (Auto) , Lymphocytes (%) (Auto) , Monocytes (%) (Auto) , Eosinophils (%) (Auto) , Basophils (%) (Auto) , Differential Total Cells Counted 100, Neutrophils % ( Manual) 42L, Lymphocytes % (Manual) 39, Monocytes % (Manual) 17H, Eosinophils % (Manual) 2, Basophils % (Manual) 0, Band Neutrophils 0, Platelet Estimate DecreasedL, Platelet Morphology Normal, Red Blood Cell Morphology Normal, Sodium Level 137, Potassium Level 3.6, Chloride Level 103, Carbon Dioxide Level 23, Anion Gap 11, Blood Urea Nitrogen 15, Creatinine 1.1, Estimat Glomerular Filtration Rate > 60, Glucose Level 79, Calcium Level 8.7 Current Medications Medications (Trade) Dose Ordered Sig/Pj Route PRN Reason Start Time Stop Time Status Last Admin Dose Admin Acetaminophen (Tylenol) 650 mg Q4H PRN RECTAL Mild Pain/Temp > 100.5 08/26/18 18:20 09/25/18 18:19 Acetaminophen/ Hydrocodone Bitart ([place] 5/325) 1 tab Q6H PRN ORAL For Pain 08/26/18 18:21 09/02/18 18:20 Albuterol Sulfate (Proventil MDI) 2 puff Q6H PRN INH Shortness of Breath 08/26/18 18:20 09/25/18 18:19 Aspirin (Ecotrin) 81 mg DAILY ORAL 08/27/18 09:00 09/25/18 08:59 08/28/18 10:23 Atorvastatin Calcium (Lipitor) 10 mg BEDTIME ORAL 08/26/18 21:00 09/24/18 22:14 08/27/18 20:09 Carbidopa/Levodopa (Sinemet 25/100) 1 tab THREE TIMES A DAY ORAL 08/27/18 09:00 09/25/18 08:59 08/28/18 10:23 Ergocalciferol (Drisdol) 50,000 intlu ONCE A WEEK ORAL 08/27/18 09:00 09/26/18 08:59 08/27/18 10:30 Hydrochlorothiazide (Hydrodiuril) 12.5 mg DAILY ORAL 08/27/18 09:00 09/25/18 08:59 08/27/18 08:48 Lisinopril (Zestril) 10 mg DAILY ORAL 08/27/18 09:00 09/25/18 08:59 08/27/18 08:49 Meclizine HCl (Antivert) 25 mg Q6H PRN ORAL for dizziness 08/26/18 18:21 09/25/18 18:20 Metoprolol Tartrate (Lopressor) 100 mg DAILY ORAL 08/27/18 09:00 09/26/18 08:59 08/27/18 08:49 Non-Formulary Medication (Non-Formulary Med) 1 ea DAILY ORAL 08/27/18 09:00 09/25/18 08:59 Lane Lovell MD Aug 28, 2018 12:52
--- NOTE | 2018-08-28 13:30 | Infectious Diseases Prog Note ---
Assessment/Plan Assessment/Plan Abx: None Assessment: Diarrhea- suspect 2ry to viral gastroenteritis -Abd US: Status post cholecystectomy. Otherwise, unremarkable abdominal sonogram. -stool cx p, Cdiff neg -influenza sc neg Low grade fever, improving -CXR: No airspace consolidation, pleural effusion or pneumothorax. -u/a neg Pancytopenia- ? due to viral GE vs 2ry to HIV Syncopal episode -Brain MRI: Negative for acute intracranial bleed, mass effect, or infarct. Age-related volume loss. Periventricular deep white matter high T2 signal, unchanged from prior exam, most likely on the basis of chronic ischemic change, chronic demyelination also a possibility HIV (CD4 count around 600s, VL UD; dx ) on Genvoya -08/26 CD4 274 (39%) Hep C s/p Harvoni tx (3 yrs ago) w/ sustained virologic response early Parkinson disease HTN CVA 2012 w/ residual left arm weakness Plan: -Continue to monitor off abx -ok to discharge home from ID perspective -f/u Bcx x2, stool cx -f.u cx -Monitor CBC/CMP, temperatures -aspiration precautions -Will hold HAART while in hospital as Genvoya is not available in the hospital; resume if family can bring it from home. Thank you for this consultation. Will continue to follow along with you. Subjective Allergies: Coded Allergies: No Known Allergies (Verified , 07/07/11) Subjective afebrile >48 hrs Objective Vital Signs Last 24 Hour Vital Signs Date Time Temp Pulse Resp B/P (MAP) Pulse Ox O2 Delivery O2 Flow Rate FiO2 08/28/18 12:00 98.0 63 19 108/76 (87) 95 08/28/18 09:00 58 108/72 08/28/18 09:00 108/72 08/28/18 08:00 97.3 58 16 108/72 (84) 95 08/28/18 04:00 98.0 58 16 107/70 (82) 95 08/27/18 23:58 97.6 67 20 135/62 (86) 98 08/27/18 20:00 97.1 58 17 113/78 (90) 96 08/27/18 16:00 98.6 64 18 109/77 (88) 96 Height (Feet): 6 Height (Inches): 0.00 Weight (Pounds): 192 Objective General Appearance: WD/WN, alert, lethargic Lines, tubes and drains: peripheral, PICC HEENT: normocephalic, atraumatic, anicteric Neck: non-tender, normal alignment, supple Respiratory/Chest: chest wall non-tender, lungs clear, normal breath sounds Cardiovascular/Chest: normal peripheral pulses, normal rate Abdomen: normal bowel sounds, non tender Extremities: non-tender Skin Exam: warm/dry Microbiology Date/Time Source Procedure Growth Status 08/26/18 12:00 Blood Blood Culture - Preliminary NO GROWTH AFTER 24 HOURS Resulted 08/26/18 11:45 Blood Blood Culture - Preliminary NO GROWTH AFTER 24 HOURS Resulted 08/26/18 12:15 Nasopharynx Influenza Types A,B Antigen (SHAWANDA) - Final Complete 08/26/18 04:57 Stool Clostridium difficile Toxin Assay - Final Complete Laboratory Tests Test 08/28/18 06:44 White Blood Count 2.9 K/UL (4.8-10.8) L Red Blood Count 3.76 M/UL (4.70-6.10) L Hemoglobin 12.0 G/DL (14.2-18.0) L Hematocrit 35.7 % (42.0-52.0) L Mean Corpuscular Volume 95 FL (80-99) Mean Corpuscular Hemoglobin 31.9 PG (27.0-31.0) H Mean Corpuscular Hemoglobin Concent 33.7 G/DL (32.0-36.0) Red Cell Distribution Width 11.5 % (11.6-14.8) L Platelet Count 99 K/UL (150-450) L Mean Platelet Volume 9.6 FL (6.5-10.1) Neutrophils (%) (Auto) % (45.0-75.0) Lymphocytes (%) (Auto) % (20.0-45.0) Monocytes (%) (Auto) % (1.0-10.0) Eosinophils (%) (Auto) % (0.0-3.0) Basophils (%) (Auto) % (0.0-2.0) Differential Total Cells Counted 100 Neutrophils % (Manual) 42 % (45-75) L Lymphocytes % (Manual) 39 % (20-45) Monocytes % (Manual) 17 % (1-10) H Eosinophils % (Manual) 2 % (0-3) Basophils % (Manual) 0 % (0-2) Band Neutrophils 0 % (0-8) Platelet Estimate Decreased L Platelet Morphology Normal Red Blood Cell Morphology Normal Sodium Level 137 MMOL/L (136-145) Potassium Level 3.6 MMOL/L (3.5-5.1) Chloride Level 103 MMOL/L (98-107) Carbon Dioxide Level 23 MMOL/L (21-32) Anion Gap 11 mmol/L (5-15) Blood Urea Nitrogen 15 mg/dL (7-18) Creatinine 1.1 MG/DL (0.55-1.30) Estimat Glomerular Filtration Rate > 60 mL/min (>60) Glucose Level 79 MG/DL (74-106) Calcium Level 8.7 MG/DL (8.5-10.1) Current Medications Medications (Trade) Dose Ordered Sig/Pj Route PRN Reason Start Time Stop Time Status Last Admin Dose Admin Acetaminophen (Tylenol) 650 mg Q4H PRN RECTAL Mild Pain/Temp > 100.5 08/26/18 18:20 09/25/18 18:19 Acetaminophen/ Hydrocodone Bitart ([place] 5/325) 1 tab Q6H PRN ORAL For Pain 08/26/18 18:21 09/02/18 18:20 Albuterol Sulfate (Proventil MDI) 2 puff Q6H PRN INH Shortness of Breath 08/26/18 18:20 09/25/18 18:19 Aspirin (Ecotrin) 81 mg DAILY ORAL 08/27/18 09:00 09/25/18 08:59 08/28/18 10:23 Atorvastatin Calcium (Lipitor) 10 mg BEDTIME ORAL 08/26/18 21:00 09/24/18 22:14 08/27/18 20:09 Carbidopa/Levodopa (Sinemet 25/100) 1 tab THREE TIMES A DAY ORAL 08/27/18 09:00 09/25/18 08:59 08/28/18 13:19 Ergocalciferol (Drisdol) 50,000 intlu ONCE A WEEK ORAL 08/27/18 09:00 09/26/18 08:59 08/27/18 10:30 Hydrochlorothiazide (Hydrodiuril) 12.5 mg DAILY ORAL 08/27/18 09:00 09/25/18 08:59 08/27/18 08:48 Lisinopril (Zestril) 10 mg DAILY ORAL 08/27/18 09:00 09/25/18 08:59 08/27/18 08:49 Metoprolol Tartrate (Lopressor) 100 mg DAILY ORAL 08/27/18 09:00 09/26/18 08:59 08/27/18 08:49 Non-Formulary Medication (Non-Formulary Med) 1 ea DAILY ORAL 08/27/18 09:00 09/25/18 08:59 Bobbi eHrzog M.D. Aug 28, 2018 13:30
[2018-08-28] MEDS ORDERED: D5 1/2NS 1000ml IV ONE (15:22)
[2018-08-28] MEDS ORDERED: Tubing IV Secondary IV ONE (15:22)
--- NOTE | 2018-08-28 15:35 | Neurology Progress Note ---
Interim History Interim History Interim History Mr. Reina feels very well today. He has had no dizziness, lightheadedness, or change in level of consciousness. The mind is clear. The strength is at baseline - still weak on the left. He has been able to walk well. The diarrhoea has stopped. He has noticed no new neurologic symptoms. Review of Systems Neuro Review of Systems Benign. Objective Physical Exam Last Vital Signs Date Time Temp Pulse Resp B/P (MAP) Pulse Ox O2 Delivery O2 Flow Rate FiO2 08/28/18 12:00 98.0 63 19 108/76 (87) 95 08/26/18 21:00 Room Air Laboratory Tests Test 08/28/18 06:44 White Blood Count 2.9 K/UL (4.8-10.8) L Red Blood Count 3.76 M/UL (4.70-6.10) L Hemoglobin 12.0 G/DL (14.2-18.0) L Hematocrit 35.7 % (42.0-52.0) L Mean Corpuscular Volume 95 FL (80-99) Mean Corpuscular Hemoglobin 31.9 PG (27.0-31.0) H Mean Corpuscular Hemoglobin Concent 33.7 G/DL (32.0-36.0) Red Cell Distribution Width 11.5 % (11.6-14.8) L Platelet Count 99 K/UL (150-450) L Mean Platelet Volume 9.6 FL (6.5-10.1) Neutrophils (%) (Auto) % (45.0-75.0) Lymphocytes (%) (Auto) % (20.0-45.0) Monocytes (%) (Auto) % (1.0-10.0) Eosinophils (%) (Auto) % (0.0-3.0) Basophils (%) (Auto) % (0.0-2.0) Differential Total Cells Counted 100 Neutrophils % (Manual) 42 % (45-75) L Lymphocytes % (Manual) 39 % (20-45) Monocytes % (Manual) 17 % (1-10) H Eosinophils % (Manual) 2 % (0-3) Basophils % (Manual) 0 % (0-2) Band Neutrophils 0 % (0-8) Platelet Estimate Decreased L Platelet Morphology Normal Red Blood Cell Morphology Normal Sodium Level 137 MMOL/L (136-145) Potassium Level 3.6 MMOL/L (3.5-5.1) Chloride Level 103 MMOL/L (98-107) Carbon Dioxide Level 23 MMOL/L (21-32) Anion Gap 11 mmol/L (5-15) Blood Urea Nitrogen 15 mg/dL (7-18) Creatinine 1.1 MG/DL (0.55-1.30) Estimat Glomerular Filtration Rate > 60 mL/min (>60) Glucose Level 79 MG/DL (74-106) Calcium Level 8.7 MG/DL (8.5-10.1) Neurologic Exam Objective PHYSICAL EXAMINATION: GENERAL: He is a a well-developed, well-nourished, pleasant black gentleman, lying in bed, in no acute distress. HEAD: Normocephalic and atraumatic. NECK: No neck rigidity was observed. EENT: Examination benign. NEUROLOGIC EXAMINATION: MENTAL STATUS EXAMINATION: He was awake and alert. He was oriented to person, place, and time. He was able to recall 3/3 words immediately after 1 & 3 minutes. He was able to remember presidents [employer] through Jeronimo Senior. His mathematical skills were good. His visuospatial function was preserved. SPEECH: He did have a mild dysarthria. LANGUAGE: He had an anomia for low-frequency words. CRANIAL NERVE EXAMINATION: II: The visual bennett were intact on confrontation testing. III, IV & : The external ocular movements were full and the pupils 3 mm in diameter, equal, round, regular, and reactive to light. V: He had normal facial sensations and the temporales, masseters, and pterygoids functioned normally. VII: He had a mild left seventh central facial paresis. VIII: He was able to hear well bilaterally and had no nystagmus. IX: The palate moved symmetrically on phonation. X: He had no hoarseness of voice. XI: The sternocleidomastoids and trapezii function normally. XII: The tongue was in the midline without any fasciculations or atrophy. MOTOR SYSTEM: The tone was normal in all four extremities. Examination of muscle mass revealed no focal wasting. Examination of power revealed G 5/5 power on the right side. On the left side, he had G 5/5 power except for G 4+/5 power in the left finger extensors and iliopsoas. There was a component of give-way weakness on the left. SENSORY EXAMINATION: He was able to discern between pinprick and light touch, but complained of a subjective alteration over his entire left body. REFLEXES: Trace+ on the right and 1+ on the left at the biceps, triceps, brachioradialis, and knees, 0 at both ankles. The plantar responses were flexor bilaterally. COORDINATION: He performed well on [id number] and [id number] testing. STANCE & GAIT: Were deferred. ABNORMAL MOVEMENTS: Tremor (4-5 Hz): G 0/4. Rigidity, bradykinesia, hypomimia, hypophonia: G 0/4. Impression/Recommendations Diagnostic Impression 1. Mr. William Reina is a 72-year-old, right-handed, black gentleman, with a past history of HIV disease, hypertension, cerebro-vascular disease with a stroke with left-sided dysfunction, and Parkinson disease, who for two days prior to admission, had significant diarrhea and on 08/25/2018 was sitting on his desk and passed out. 2. He feels very well. He has had no dizziness, lightheadedness, or change in level of consciousness. The mind is clear. The strength is at baseline - still weak on the left. He has been able to walk well. The diarrhoea has stopped. He has noticed no new neurologic symptoms. 3. On neurological examination, at this time, he does have a mild dysarthria, a mild anomia for low-frequency words, a definite left hemiparesis involving the face and upper and lower extremities, left-sided hemisensory deficit of a subjective nature, and globally diminished deep tendon reflexes that are slightly brisker on the left than on the right. 4. The CT scan of the brain without contrast performed at [facility] by report revealed mild atrophy and deep white matter changes, but no acute pathology. 5. Laboratory data from [facility] revealed that he is anemic with a hemoglobin of 11.4 G and his chemistry panel is relatively benign except for low magnesium at 1.6. 6. The patient's history, neurological examination, imaging and laboratory data are most compatible with a possible syncopal episode due to dehydration due to diarrhea. 7. The left hemiparesis is due to old cerebrovascular disease and so is a hemisensory deficit. 8. His Parkinson disease is under excellent control. Recommendations 1. Continue present management. 2. Keep well hydrated at all times. 3. Continue blood pressure control. 4. Continue aspirin 81 mg daily for stroke prophylaxis. 5. Continue Lipitor for stroke prophylaxis. 6. Continue Sinemet 25/100, best to be taken at 7 a.m., 12 noon, 5 p.m. 7. Agree with discharge home. Tj Hayes M.D., M.SP.H. Tj Hayes MD Aug 28, 2018 15:35
[2018-08-28 16:00] VITALS: BP 113/75
--- NOTE | 2018-08-28 18:25 | NUR ---
NURSE NOTES: Patient discharged per MD order, belongings list reviewed, no discrepancies noted, IV removed no issues noted, ID band removed, discharge paperwork reviewed with patient, RN asked patient if he needed a prescription for Genvoya and patient replied "I don't need the prescription" patient reported "I have that med at home", patient railway switchman/Nurse practitioner came and picked patient up, patient transferred downstairs by walking and was escorted by AC [place], no distress noted and patient and railway switchman left in good spirits.
--- NOTE | 2018-08-28 18:34 | NUR ---
NURSE NOTES: Patient discharged per MD's order, no discrepancies noted,iv removed,id band removed, his belongings checked and given to him. Discharge paper works reviewed with patient. Patient was accompanied by Procurement Buyer/Nurse practitioner who picked him up.I accompanied the patient to the lobby by his car.Patient is not in distress
--- NOTE | 2018-08-28 18:51 | Internal Med Progress Note ---
Subjective Date of Service: Aug 28, 2018 Physician Name Alberto Phipps Attending Physician Marshall Lujan MD Allergies: Coded Allergies: No Known Allergies (Verified , 07/07/11) ROS Limited/Unobtainable: No Constitutional: Reports: no symptoms HEENT: Reports: no symptoms Cardiovascular: Reports: no symptoms Respiratory: Reports: no symptoms Gastrointestinal/Abdominal: Reports: no symptoms Genitourinary: Reports: no symptoms Neurologic/Psychiatric: Reports: no symptoms Subjective 72 YO M admitted with syncope. Cover for Int Med-DR Lujan Objective Last Vital Signs Date Time Temp Pulse Resp B/P (MAP) Pulse Ox O2 Delivery O2 Flow Rate FiO2 08/28/18 16:00 98.5 58 18 113/75 (88) 100 08/26/18 21:00 Room Air Laboratory Tests Test 08/28/18 06:44 White Blood Count 2.9 K/UL (4.8-10.8) L Red Blood Count 3.76 M/UL (4.70-6.10) L Hemoglobin 12.0 G/DL (14.2-18.0) L Hematocrit 35.7 % (42.0-52.0) L Mean Corpuscular Volume 95 FL (80-99) Mean Corpuscular Hemoglobin 31.9 PG (27.0-31.0) H Mean Corpuscular Hemoglobin Concent 33.7 G/DL (32.0-36.0) Red Cell Distribution Width 11.5 % (11.6-14.8) L Platelet Count 99 K/UL (150-450) L Mean Platelet Volume 9.6 FL (6.5-10.1) Neutrophils (%) (Auto) % (45.0-75.0) Lymphocytes (%) (Auto) % (20.0-45.0) Monocytes (%) (Auto) % (1.0-10.0) Eosinophils (%) (Auto) % (0.0-3.0) Basophils (%) (Auto) % (0.0-2.0) Differential Total Cells Counted 100 Neutrophils % (Manual) 42 % (45-75) L Lymphocytes % (Manual) 39 % (20-45) Monocytes % (Manual) 17 % (1-10) H Eosinophils % (Manual) 2 % (0-3) Basophils % (Manual) 0 % (0-2) Band Neutrophils 0 % (0-8) Platelet Estimate Decreased L Platelet Morphology Normal Red Blood Cell Morphology Normal Sodium Level 137 MMOL/L (136-145) Potassium Level 3.6 MMOL/L (3.5-5.1) Chloride Level 103 MMOL/L (98-107) Carbon Dioxide Level 23 MMOL/L (21-32) Anion Gap 11 mmol/L (5-15) Blood Urea Nitrogen 15 mg/dL (7-18) Creatinine 1.1 MG/DL (0.55-1.30) Estimat Glomerular Filtration Rate > 60 mL/min (>60) Glucose Level 79 MG/DL (74-106) Calcium Level 8.7 MG/DL (8.5-10.1) Microbiology Date/Time Source Procedure Growth Status 08/26/18 12:00 Blood Blood Culture - Preliminary NO GROWTH AFTER 24 HOURS Resulted 08/26/18 11:45 Blood Blood Culture - Preliminary NO GROWTH AFTER 24 HOURS Resulted 08/26/18 12:15 Nasopharynx Influenza Types A,B Antigen (SHAWANDA) - Final Complete 08/26/18 04:57 Stool Clostridium difficile Toxin Assay - Final Complete Intake and Output 08/27/18 08/28/18 19:00 07:00 Intake Total 890 ml 360 ml Balance 890 ml 360 ml Intake Oral 890 ml 360 ml # Bowel Movements 1 1 Objective PHYSICAL EXAMINATION: VITAL SIGNS: Temperature 99.1, respirations 20, pulse 79, and blood pressure 111/71. GENERAL: The patient is a well-developed, well-nourished male, in no apparent distress. HEENT: Eyes, pupils equal and responsive to light and accommodation. Extraocular movements are intact. NECK: Supple without lymphadenopathy. CHEST: Lungs are clear to auscultation bilaterally without wheezes or rales. CARDIOVASCULAR: Regular rhythm and rate. S1 and S2 are normal without murmurs, rubs, or gallops. ABDOMEN: Soft, nontender, and nondistended. Positive bowel sounds. No evidence of hepatosplenomegaly. Currently, no rebound or guarding noted. EXTREMITIES: Negative for clubbing, cyanosis, or edema. RECTAL: Not performed. GENITAL: Not performed. NEUROLOGIC: Cranial nerves II through XII are grossly intact without focal deficits. Motor strength is 5/5 bilaterally intact. Deep tendon reflexes are 2+ Assessment/Plan Assessment/Plan ASSESSMENT: This is a 72-year-old male. 1. Syncopal episode. 2. Nausea/vomiting/diarrhea. 3. Dehydration. 4. HIV. 5. Cerebrovascular disease. 6. Hepatitis C. 7. Parkinson's disease. TREATMENT: 1. Syncope/altered mental status. A Neurology consultation has been obtained with Dr. Tj Hayes. 08/27/18 MRI of the brain was reported as normal. 2. Nausea/vomiting/diarrhea/dehydration. The patient is currently receiving intravenous fluids. 3. HIV. Continue Genvoya as above. 4. Cerebrovascular disease. 5. Parkinson's disease. Continue Sinemet as above. 6. Hepatitis C, status post Harvoni therapy. 7. Discharge home today Alberto Phipps MD Aug 28, 2018 18:51
--- NOTE | 2018-08-29 09:15 | Discharge Summary ---
Discharge Summary Discharge Summary _ DATE OF ADMISSION: 08/25/2018 DATE OF DISCHARGE: 08/28/2018 DISCHARGED BY: Dr. Lane Braden ADMITTING MD: Dr. Marshall Lujan CONSULTANTS: Dr. Lane Wellington [facility] HOSPITAL COURSE: Patient is a 72-year-old -Citizen Of [place] male, who presented with chief complaint of syncopal episode. Symptoms started on August 24, 2018. The patient began to experience nausea, vomiting and diarrhea. The patient then went to [facility] services on August 25, 2018. He was found slumped over in the office. 911 was called. Patient was initially evaluated at [facility] emergency room. The patient was transferred to [facility] for insurance purposes. He has medical history significant for hypertension, cerebrovascular accident x2, Parkinson's disease, HIV, diagnosed in 1981 with undetectable viral load and T-cell count greater than 600, history of hepatitis C status post Harvoni therapy. He had history of Kaposi's sarcoma resection, right groin lymph node resection, cholecystectomy and left hip total arthroplasty secondary to avascular necrosis. He was admitted for evaluation of syncope. Patient had nausea/vomiting/ diarrhea with dehydration. He was given IV fluids. He was advised to continue on his antiretrovirals, however, Genvoya was not available in hospital formulary. CD4 count 274. Neuro evaluation was done. Patient had a history of stroke in 2012 with left hemiparesis and left hemisensory deficit. He was diagnosed with Parkinson's disease and was responsive to Sinemet. CT of the brain done at [place] revealed mild atrophy and white matter changes but no acute pathology. On neurological examination, he presented with mild dysarthria, mild anomia, left hemiparesis involving the face and both upper and lower extremities, left-sided hemisensory deficit of subjective nature, globally diminished deep tendon reflexes that are slightly brisker on the left than on the right and parkinsonian tremor on the hands. He was recommended to continue aspirin and Lipitor. He was continued on Sinemet 25/100 mg. Brain MRI done 08/27/2018 was negative for acute intracranial bleed, mass-effect or infarct. The duplex scan did not show any significant plaques within the right and left extra cranial carotid arteries. Vertebral arteries were within normal limits. ID was consulted for evaluation of diarrhea and vomiting. Diarrhea started 2 days prior and eventually developed vomiting. There were no sick contacts. He had slight fever. Stool C. difficile was negative. Influenza screen was negative. He was observed off antibiotics. Ultrasound showed evidence of cholecystectomy, otherwise, unremarkable. Diarrhea possibly due to viral gastroenteritis. Diarrhea resolved. Cultures were negative. He was eventually cleared for discharge home. FINAL DIAGNOSES: Syncope due to orthostatic hypotension, present on admission Nausea, vomiting and diarrhea possibly secondary to viral gastroenteritis Dehydration HIV Old CVA with left hemiparesis Hepatitis C Parkinson's disease Pancytopenia DISPOSITION: Patient was discharged home. DISCHARGE MEDICATIONS: Refer to Discharge Medication List. DISCHARGE INSTRUCTIONS: Follow-up in a week. I have been assigned to complete a discharge summary on this account, I was not involved with the patient's management. Karin Catalan NP Aug 29, 2018 09:15
== END 2018-08-28 18:08 | disposition home or self-care (01) | DRG 977 ==
LOC: 2W 20:18 → 2E 08-26 10:19 → 2W 08-26 10:46 → 4E 08-26 18:11
DX: E86.0 Dehydration (principal); B20 Human immunodeficiency virus [HIV] disease; D61.818 Other pancytopenia; I69.354 Hemiplegia and hemiparesis following cerebral infarction affecting left non-dominant side; A08.4 Viral intestinal infection, unspecified; I95.1 Orthostatic hypotension; I10 Essential (primary) hypertension; G20 Parkinson's disease; Z96.642 Presence of left artificial hip joint; Z90.49 Acquired absence of other specified parts of digestive tract; Z85.9 Personal history of malignant neoplasm, unspecified; B19.20 Unspecified viral hepatitis C without hepatic coma; Z87.891 Personal history of nicotine dependence
CPT/HCPCS: 36415; 70551; 71045; 76700; 80048; 80053; 81003; 82270; 82378; 82607; 82746; 83540; 83550; 83615; 83735; 84100; 84484; 85007; 85025; 85044; 85060; 85610; 85651; 85730; 86140; 86360; 86710; 86803; 87040; 87045; 87324; 93005; 93880; 93970